=== PATIENT | female | born 1955 | race Caucasian/White ===

== ENCOUNTER 2024-06-09 12:02 | Outpatient (CLI) | payer MEDICARE, BC ==
[2024-06-09] MEDS ORDERED: iohexol 300mg/ml 100ml inj. ONE (13:10)
== END 2024-06-09 23:59 | disposition home or self-care (01) ==
LOC: RAD 12:02
PROVIDERS: ATTEND Nurse Practitioner Family
DX: J90 Pleural effusion, not elsewhere classified (principal); J81.1 Chronic pulmonary edema; D05.12 Intraductal carcinoma in situ of left breast; D05.11 Intraductal carcinoma in situ of right breast
CPT/HCPCS: 71260; Q9967

== ENCOUNTER 2024-06-09 12:15 | Outpatient (CLI) | payer MEDICARE, BC | END 2024-06-09 23:59 | disposition home or self-care (01) | LOC: RAD 12:15 | PROVIDERS: ATTEND Registered Nurse | DX: J90 Pleural effusion, not elsewhere classified (principal); C77.3 Secondary and unspecified malignant neoplasm of axilla and upper limb lymph nodes; I51.7 Cardiomegaly | CPT/HCPCS: 71046 ==

== ENCOUNTER 2024-06-09 13:39 | Emergency (ER) | payer MEDICARE, BC ==
[~2024-06-09] VITALS: Ht 172.7 cm; Wt 91.7 kg
[2024-06-09 14:35] LABS: BASOPHILS % (AUTO) 0.7 % (0-1); EOSINOPHILS # (AUTO) 0.2 X10'3 (0-0.9); EOSINOPHILS % (AUTO) 2.3 % (0-6); HEMATOCRIT 38.5 % (35.0-45.0); LYMPHOCYTES # (AUTO) 0.6 X10'3 (1.1-4.8); LYMPHOCYTES % (AUTO) 8.4 % (21-51); MEAN CORPUSCULAR HEMOGLOBIN 28.9 PG (27.0-31.0); MEAN CORPUSCULAR HGB CONC 33.7 g/dL (33.0-36.5); MEAN CORPUSCULAR VOLUME 85.9 FL (78-98); MEAN PLATELET VOLUME 8.2 FL (7.4-10.4); MONOCYTES # (AUTO) 0.5 X10'3 (0-0.9); MONOCYTES % (AUTO) 6.8 % (2-12); NEUTROPHILS # (AUTO) 5.7 X10'3 (1.8-7.7); NEUTROPHILS % (AUTO) 81.8 % (42-75); PLATELET COUNT 245 X10'3 (140-440); RED BLOOD COUNT 4.49 X10'6 (4.20-5.60); RED CELL DISTRIBUTION WIDTH 13.2 % (11.5-14.5)
[2024-06-09 14:44] LABS: ALANINE AMINOTRANSFERASE 31 U/L (12-78); ALBUMIN 3.3 G/DL (3.4-5.0); ALBUMIN/GLOBULIN RATIO 1.1 (1.1-1.5); ALKALINE PHOSPHATASE 108 IU/L (46-116); ANION GAP 5 (8-16); ASPARTATE AMINO TRANSFERASE 19 U/L (10-37); BILIRUBIN,TOTAL 0.6 MG/DL (0.1-1.0); BLOOD UREA NITROGEN 11 MG/DL (7-18); BUN/CREATININE RATIO 18.6 (10.0-20.0); CALCIUM 8.8 MG/DL (8.5-10.1); CHLORIDE 107 MMOL/L (99-107); CREATININE 0.59 MG/DL (0.40-0.90); GLUCOSE 89 MG/DL (70-104); POTASSIUM 3.6 MMOL/L (3.5-5.1); SODIUM 140 MMOL/L (135-145); TOTAL CARBON DIOXIDE 28.3 MMOL/L (24-32); TOTAL PROTEIN 6.4 G/DL (6.4-8.2); eCRCL 91 ML/MIN; eGFR > 90 ML/MIN
[2024-06-09 16:00] LABS: PLEURAL FLUID PH 7.504 (7.63-7.65)
[2024-06-09 16:01] LABS: BFSOURCE LEFT PLEURAL FLD
[2024-06-09] MEDS: oxyCODONE/APAP 5-325mg tablet PO ONE (16:17)
[2024-06-09 16:33] VITALS: BP 160/87; PULSE 60; RESP 24; O2SAT 97
[2024-06-09 16:48] LABS: BFAPPEAR CLEAR; BFSOURCE LEFT PLEURAL FLD
[2024-06-09 16:49] LABS: BFCOLOR YELLOW; BFVOLUME 1720 ML
[2024-06-09 17:08] VITALS: TEMP 98
[2024-06-09 17:14] LABS: LDH,BODY FLUID 135 U/L
[2024-06-09 17:44] LABS: BASOPHILS,BODY FLUID 0 %; BF RBC COUNT 725 /CU MM; BF WBC COUNT 95 /CU MM (0-1000); EOSINOPHILS,BODY FLUID 11 %; LYMPHOCYTES,BODY FLUID 37 %; MONOCYTES,BODY FLUID 24 %; NEUTROPHILS,BODY FLUID 28 %
[2024-06-09 17:46] LABS: BF MESOTHELIAL CELLS OCCASIONAL
== END 2024-06-09 17:09 | disposition home or self-care (01) ==
LOC: ER 13:40
DX: J90 Pleural effusion, not elsewhere classified (principal); Z85.3 Personal history of malignant neoplasm of breast; Z98.890 Other specified postprocedural states
CPT/HCPCS: 32555; 36415; 71045; 80053; 82945; 83615; 83986; 84145; 84157; 84484; 85025; 89051; 93005; 99285; Z7610

== ENCOUNTER 2024-07-26 09:42 | Emergency (ER) | payer MEDICARE, BC ==
[~2024-07-26] VITALS: Ht 172.7 cm; Wt 88.7 kg
[2024-07-26 09:45] VITALS: TEMP 98.7
--- NOTE | 2024-07-26 10:08 | ELECTROCARDIOGRAPH REPORT ---
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 Ney Herrera Measurements Intervals [place] Rate: 65 P: 41 [place]: 124 QRS: 31 QRSD: 96 T: 19 QT: 523 QTc: 544 Interpretive Statements Atrial-paced complexes Borderline T wave abnormalities Prolonged QT interval Baseline wander in lead(s) V1 Electronically Signed On 07-29-2024 13:44:[address] Ney Herrera Please click the below link to view image of tracing.
--- NOTE | 2024-07-26 10:19 | RADIOLOGY REPORT ---
EXAM: DI CHEST,TWO VIEWS CLINICAL HISTORY: SOB WITH HX OF THORACENTESIS IN MAY. COMPARISON: DI CHEST,TWO VIEWS on DOS: 06/09/24 TECHNIQUE: Frontal and lateral view of the chest was obtained FINDINGS: Lines and Tubes: None Lungs: Large left pleural effusion. Cardiomediastinal contours: Cardiomegaly Bones: No acute osseous abnormality. IMPRESSION: Large left pleural effusion with cardiomegaly.
[2024-07-26 10:21] LABS: BASOPHILS # (AUTO) 0.1 X10'3 (0-0.2); BASOPHILS % (AUTO) 0.9 % (0-1); EOSINOPHILS # (AUTO) 0.1 X10'3 (0-0.9); EOSINOPHILS % (AUTO) 1.7 % (0-6); HEMATOCRIT 40.7 % (35.0-45.0); HEMOGLOBIN 13.6 g/dl (12.0-16.0); LYMPHOCYTES # (AUTO) 0.6 X10'3 (1.1-4.8); LYMPHOCYTES % (AUTO) 10.8 % (21-51); MEAN CORPUSCULAR HEMOGLOBIN 28.3 PG (27.0-31.0); MEAN CORPUSCULAR HGB CONC 33.5 g/dL (33.0-36.5); MEAN CORPUSCULAR VOLUME 84.6 FL (78-98); MEAN PLATELET VOLUME 8.4 FL (7.4-10.4); MONOCYTES # (AUTO) 0.4 X10'3 (0-0.9); NEUTROPHILS # (AUTO) 4.7 X10'3 (1.8-7.7); NEUTROPHILS % (AUTO) 79.6 % (42-75); PLATELET COUNT 276 X10'3 (140-440); RED BLOOD COUNT 4.81 X10'6 (4.20-5.60); RED CELL DISTRIBUTION WIDTH 13.9 % (11.5-14.5); WHITE BLOOD COUNT 5.9 X10'3 (4.5-11.0)
[2024-07-26 10:32] LABS: ALANINE AMINOTRANSFERASE 19 U/L (12-78); ALBUMIN 3.7 G/DL (3.4-5.0); ALKALINE PHOSPHATASE 121 IU/L (46-116); ANION GAP 7 (8-16); ASPARTATE AMINO TRANSFERASE 14 U/L (10-37); BILIRUBIN,TOTAL 0.6 MG/DL (0.1-1.0); BLOOD UREA NITROGEN 16 MG/DL (7-18); BUN/CREATININE RATIO 22.5 (10.0-20.0); CALCIUM 9.4 MG/DL (8.5-10.1); CHLORIDE 104 MMOL/L (99-107); CREATININE 0.71 MG/DL (0.40-0.90); GLUCOSE 103 MG/DL (70-104); POTASSIUM 3.8 MMOL/L (3.5-5.1); SODIUM 140 MMOL/L (135-145); TOTAL CARBON DIOXIDE 29.5 MMOL/L (24-32); TOTAL PROTEIN 7.4 G/DL (6.4-8.2); eCRCL 75 ML/MIN; eGFR 82 ML/MIN
[2024-07-26 10:40] LABS: PRO BRAIN NATRIURETIC PEPTIDE 67 PG/ML (0-125)
[2024-07-26] MEDS ORDERED: GABA300C (11:47)
[2024-07-26] MEDS ORDERED: HYDR-3964 PO (11:47)
[2024-07-26] MEDS ORDERED: TIRZ5PEN (11:47)
[2024-07-26] MEDS ORDERED: TRAZ-251 PO (11:47)
[2024-07-26] MEDS: HYDROcodone/acetaminophen 10/325mg tab PO STA (12:12)
--- NOTE | 2024-07-26 13:15 | Physician Documentation ---
History of Present Illness ~ Chief Complaint: Shortness of Breath Stated Complaint: BACK PAIN/FLUID ON LUNGS Time Seen by MD: 11:30 Primary Medical Doctor: Lela Lay [facility] Patient is seen today with complaints of shortness of breath with history of p leural effusion in the left side and history of breast cancer. Patient states she is working closely with Dr. Patrick. Patient states she did have thoracentesis about a week ago and had over a L drained from her left chest cavity but states she now has pain from that procedure and states it did not seem to help her shortness of breath at all. Patient denies any chest pain or fevers or chills or body aches or abdominal pain or nausea, vomiting, diarrhea. Patient has no other concern or complaint at this time. Patient states her main complaint is pain and would like a renewal of her pain script. Medication Reconciliation Allergies: Coded Allergies: No Known Allergies (Unverified , 06/09/24) Scheduled Trazodone HCl (Trazodone HCl), 1 TAB PO HS, (Reported) Scheduled PRN Hydrocodone Bit/Acetaminophen (Hydrocodon-Acetaminophen 5-325), 1 TAB PO Q6H PRN for pain, (Reported) Miscellaneous Medications Gabapentin (Neurontin), (Reported) Tirzepatide (Mounjaro), (Reported) Past Medical History Past Medical History: Breast Cancer Past Surgical History: no surgical history Drug Use: none Lives In: Home Review of Systems Constitutional: Denies: chills, fever, weakness Eyes: Denies: pain, blurred vision ENT: Denies: ear pain, nose pain, throat pain, mouth pain Respiratory: Denies: cough, shortness of breath Cardiovascular: Denies: chest pain, palpitations Gastrointestinal: Denies: abdominal pain, nausea, vomiting Genitourinary: Denies: burning, dysuria Female Genitalia: Denies: vaginal discharge, pelvic pain Neurological: Denies: headache, dizziness Musculoskeletal: Denies: pain, swelling Integumentary: Denies: rash, lesions Allergic/Immunologic: Denies: hives, itching Hematologic/Lymphatic: Denies: no symptoms reported Psychiatric: Denies: depression, anxiety Physical Exam Vital Signs: Temperature: 98.7, Source: Temporal, Heart Rate: 62, Respiratory Rate: 16, BP: 137/80, Pulse Oximetry: 98, Weight: 88.650 Oxygen Flow Rate: 0 Physical Exam General: Awake and Alert, no acute distress. HEENT: Conjunctiva pink, Sclera clear, Mucus Membranes moist. Neck: Supple without masses and tenderness. Resp: Patient on exam does not have any labored breathing and does not appear to be any in any respiratory distress. Patient does have diminished breath sounds of the left lower side. Patient otherwise has clear best breath sounds throughout. Heart: Regular Rate and rhythm, normal S1 and S2 without murmur, rub or gallop. Abdomen: Soft and non tender no organomegaly Extremities: No cyanosis,clubbing or edema. Skin: Warm and Dry. Progress Results/Orders Results/Orders Completed Orders - FENG CADET Hydrocodone/Apap 10/325 (Hailey 10/325mg (07/26/24 11:50) Medications Received in ER Medications (Trade) Dose Ordered Sig/Irineo Route PRN Reason Start Time Stop Time Status Last Admin Dose Admin (Hailey 10/325mg tab) 1 tab ONCE STAT PO 07/26/24 11:50 07/26/24 11:51 DC 07/26/24 12:12 1 TAB Vital Signs 07/26/24 07/26/24 07/26/24 07/26/24 09:45 11:47 11:47 12:12 Temp 98.7 Pulse 74 62 Resp 18 16 16 16 B/P (MAP) 139/74 137/80 (99) Pulse Ox 95 98 O2 Flow Rate 0 0 Laboratory Tests Test 07/26/24 10:09 White Blood Count 5.9 Red Blood Count 4.81 Hemoglobin 13.6 Hematocrit 40.7 Mean Corpuscular Volume 84.6 Mean Corpuscular Hemoglobin 28.3 Mean Corpuscular Hemoglobin Concent 33.5 Red Cell Distribution Width 13.9 Platelet Count 276 Mean Platelet Volume 8.4 Neutrophils (%) (Auto) 79.6 H Lymphocytes (%) (Auto) 10.8 L Monocytes (%) (Auto) 7.0 Eosinophils (%) (Auto) 1.7 Basophils (%) (Auto) 0.9 Neutrophils # (Auto) 4.7 Lymphocytes # (Auto) 0.6 L Monocytes # (Auto) 0.4 Eosinophils # (Auto) 0.1 Basophils # (Auto) 0.1 CBC Comment Sodium Level 140 Potassium Level 3.8 Chloride Level 104 Carbon Dioxide Level 29.5 Anion Gap 7 L Blood Urea Nitrogen 16 Creatinine 0.71 Estimated GFR/1.73 m2 82 BUN/Creatinine Ratio 22.5 H Glucose Level 103 Calcium Level 9.4 Total Bilirubin 0.6 Aspartate Amino Transf (AST/SGOT) 14 Alanine Aminotransferase (ALT/SGPT) 19 Alkaline Phosphatase 121 H Pro-B-Type Natriuretic Peptide 67 Total Protein 7.4 Albumin 3.7 Globulin 3.7 Albumin/Globulin Ratio 1.0 L Chemistry Comments EKG/XRAY/CT/US/VASC/MRI EKG : Additional Comment EKG interpreted by myself today shows regular rate at 65 beats per minute, atrial paced complexes, no sign of ischemia and no ST segment elevation. Chest X-Ray : Additional Comments Chest x-ray interpreted by myself today shows large left pleural effusion, cardiomegaly, no large infiltrate. DIAGNOSTIC RADIOLOGY Patient: SUSAN BELLO Medical Record: [id number] [facility] : 1955, Age: 69 Sex: Female Location: ER Patient Status: [facility] ER Service Date/Time: 07/26/24947 Ordering Physician: LAURA CHAMBERS MD Exam: CHEST,TWO VIEWS EXAM: DI CHEST,TWO VIEWS CLINICAL HISTORY: SOB WITH HX OF THORACENTESIS IN MAY. COMPARISON: DI CHEST,TWO VIEWS on DOS: 06/09/24 TECHNIQUE: Frontal and lateral view of the chest was obtained FINDINGS: Lines and Tubes: None Lungs: Large left pleural effusion. Cardiomediastinal contours: Cardiomegaly Bones: No acute osseous abnormality. IMPRESSION: Large left pleural effusion with cardiomegaly. Electronically Signed by:LUIGI SCHUMACHER MD Date & Time: 07/26/24 1017 Dictated by: LUIGI SCHUMACHER MD Dictation date and time: 07/26/24 1005 Primary Care Provider: NO PRIMARY CARE PROVIDER cc: LAURA CHAMBERS MD ~ Medical Decision Making Findings Patient is seen today with complaints of shortness of breath with history of pleural effusion in the left side and history of breast cancer. Patient states she is working closely with Dr. Patrick. Patient states she did have thoracentesis about a week ago and had over a L drained from her left chest cavity but states she now has pain from that procedure and states it did not seem to help her shortness of breath at all. Patient denies any chest pain or fevers or chills or body aches or abdominal pain or nausea, vomiting, diarrhea. Patient has no other concern or complaint at this time. Patient states her main complaint is pain and would like a renewal of her pain script. Patient did have large left pleural effusion on exam today as well as visualized on chest x-ray. Patient did have labs drawn that are largely unremarkable without any sign of leukocytosis and only mild elevation of alkaline phosphatase. Patient will continue close follow up with Oncology and will make appointment outpatient with IR for possible chest tube and will coordinate this with her primary care/oncologist. Patient will return to ED with any worsening, concerning or changing symptoms. Patient was given Hailey 10/325 mg tablet in the ED today as well as a prescription sent to patient's pharmacy for Hailey 10/325 mg to be taken as directed. Departure Disposition: HOME / SELF CARE / HOMELESS Impression: Primary Impression: Pleural effusion Condition: Improved Discharge Instructions: Pleural Effusion Additional Instructions: Patient did have large left pleural effusion on exam today as well as visualized on chest x-ray. Patient did have labs drawn that are largely unremarkable without any sign of leukocytosis and only mild elevation of alkaline phosphatase. Patient will continue close follow up with Oncology and will make appointment outpatient with IR for possible chest tube and will coordinate this with her primary care/oncologist. Patient will return to ED with any worsening, concerning or changing symptoms. Patient was given Hailey 10/325 mg tablet in the ED today as well as a prescription sent to patient's pharmacy for Hailey 10/325 mg to be taken as directed. Referrals: NO PRIMARY CARE PROVIDER (PCP) Prescriptions Hydrocodone Bit/Acetaminophen (Hydrocodon-Acetaminophn 10-325 tablet) 10mg- 325mg Tablet 1 TAB PO QID PRN PRN for pain for 7 Days, #28 TAB Prov: FENG CADET PAC 07/26/24 Signature Scribe Signature: no Scribe Attestation: No scribe FENG CADET PAC July 26, 2024 13:15
[2024-07-26] MEDS ORDERED: HYDR-3973 PO (13:17)
[2024-07-26] MEDS ORDERED: HYDR-3972 PO (13:42)
[2024-07-26 13:54] VITALS: BP 119/68; PULSE 60; RESP 16; O2SAT 98
== END 2024-07-26 13:55 | disposition home or self-care (01) ==
LOC: ER 09:43
DX: J90 Pleural effusion, not elsewhere classified (principal); Z85.3 Personal history of malignant neoplasm of breast
CPT/HCPCS: 36415; 71046; 80053; 83880; 85025; 93005; 99285

== ENCOUNTER 2024-12-21 10:40 | Inpatient (IN) | payer MEDICARE, BC ==
[2024-12-21] VITALS (13 sets, daily range): BP systolic 97–130; BP diastolic 53–82; PULSE 65–77; RESP 15–34; TEMP 97–99.2; O2SAT 92–98
[~2024-12-21] VITALS: Ht 172.7 cm; Wt 81.8 kg
[~2024-12-21 10:40] MED LIST: GABA300C PO; HYDR-3964 PO; TIRZ5PEN; TRAZ-251 PO
[2024-12-21] MEDS ORDERED: PALB125C PO (11:07)
[2024-12-21] MEDS ORDERED: ANAS1TAB10 PO (11:07)
[2024-12-21 11:42] LABS: MEAN PLATELET VOLUME 6.8 FL (7.4-10.4); RED CELL DISTRIBUTION WIDTH 18.3 % (11.5-14.5)
[2024-12-21 12:00] LABS: CREATININE 0.64 MG/DL (0.40-0.90); INR 1.1 INR; TOTAL CARBON DIOXIDE 33.4 MMOL/L (24-32); eCRCL 84 ML/MIN; eGFR > 90 ML/MIN
[2024-12-21 12:45] LABS: EOSINOPHILS % (MANUAL) 3.0 % (0-6); LYMPHOCYTES % (MANUAL) 11.0 % (21-51); MONOCYTES % (MANUAL) 5.0 % (2-12); NEUTROPHILS % (MANUAL) 81.0 % (42-75); PLATELET ESTIMATE NORMAL
[2024-12-21 12:46] LABS: ELLIPTOCYTES FEW
[2024-12-21] MEDS ORDERED: fentaNYL/PF 50MCG/1 ML 2ML syringe ONE (14:51)
[2024-12-21] MEDS ORDERED: midazolam 1 mg/ML 2ml injection ONE (14:51)
--- NOTE | 2024-12-21 15:35 | PROGRESS NOTE ---
Progress Note - Angio Providers to CC ~ Angio Progress Note: Risks benefits alt of left chest tube by CT guidance placement d/w pt and informed consent disclosed. Surgical time out, successful placement of 12 Fr pigtail L chest tube for future talc pleurodesis by Dr Medina. D/W our Hospitalist team who will kindly be admitting tonight. Pleurivac suction, to be clamped for 2 hrs after the first 1000cc dark bloody fluid is removed. EBL less than 3 cc, Complications None, Dictated. ANNA LAMB MD Dec 21, 2024 15:35
--- NOTE | 2024-12-21 15:40 | CONSULTATION REPORT ---
History of Present Illness Providers to CC ~ Refering MD: [facility] Allergies: Coded Allergies: No Known Allergies (Unverified , 06/09/24) Home Medications Home Medications Active Reported Arimidex* (Anastrozole) 1 Mg Tablet 1 Tab PO DAILY 30 Days Ibrance (Palbociclib) 125 Mg Capsule 1 Cap PO DAILY Neurontin (Gabapentin) 300 Mg Capsule 300 Mg PO BID Hydrocodon-Acetaminophen 5-325 (Hydrocodone Bit/Acetaminophen) 5 Mg-325 Mg Tablet 1 Tab PO Q6H PRN Physical Exam Last Vital Signs Recorded: Temperature: 97.7, Source: Oral, Heart Rate: 72, Respiratory Rate: 15, BP: 126/65, Pulse Oximetry: 97, Weight: 81.800 Results Diagram Lab Result Diagram: 12/21/24 1125 12/21/24 1125 ANNA LAMB MD Dec 21, 2024 15:40
[2024-12-21] MEDS: HYDROcodone/acetaminophen 10/325mg tab PO PRN (15:49)
--- NOTE | 2024-12-21 16:02 | RADIOLOGY REPORT ---
CT-guided chest tube placement left-sided 12 Ghanaian Clinical history: Prior history of breast cancer. Large left pleural effusion with future pleurodesis planned DLP 797.62 Medication: 25 micrograms IV fentanyl. 8 mL 1% lidocaine subcutaneous ESTIMATED BLOOD LOSS: None Consent was obtained. Risks benefits alternatives were discussed. Patient brought to CT scanner and large left pleural effusion was localized. Overlying soft tissues are prepped in usual sterile fashion draped. Surgical timeout was performed. The soft tissues were anesthetized with 1% lidocaine. Using CT guidance a 5 Ghanaian [employer] catheter was placed in the pleural space. Wire placement was confirmed with imaging. It was exchanged over guidewire serial dilators up to 12 Ghanaian followed by placement of 12 Ghanaian pigtail catheter. Wire was removed. Catheter was placed to Pleur-evac suction and fixed to skin with suture and with adhesive device. She tolerated procedure well. FINDINGS: 12 Ghanaian pigtail chest tube within a large left pleural effusion. We will connected to Pleur-evac suction. After the first 1000 cc of dark bloody fluid removal we will clamp the Pleur-evac tube for 2 hours to allow normalization of left lung expansion. IMPRESSION: Successful left-sided 12 Ghanaian chest tube placement for large left pleural effusion and future pleurodesis.
--- NOTE | 2024-12-21 16:08 | HISTORY AND PHYSICAL ---
History & Physical Providers to Chief complaint, shortness of breath ~ History of Present Illness Reason for Admit\Complaint: As above History of Present Illness This is a 69 years old female with history of breast cancer, followed by oncologist, history of left side large pleural effusion, treated with thoracocentesis June 2024, history of chronic pain syndrome on home opioids, anemia, leukopenia, hypoalbuminemia, cardiomegaly, presented today to the hospital with chief complaint shortness of breath and large left pleural effusion, patient had procedure done by interventional radiologist, Dr. Tristan left side of the chest was placed chest tube, and decision was made to admit patient for further evaluation and treatment including further consultation by Cardiothoracic surgeon; in addition patient is seen today with complaints of shortness of breath with history of pleural effusion in the left side and history of breast cancer. Patient states she is working closely with Dr. Patrick. Patient states she did have thoracentesis and June 2024 and had over a L drained from her left chest cavity but states she now has pain from that procedure and states it did not seem to help her shortness of breath at all. Patient denies any chest pain or fevers or chills or body aches or abdominal pain or nausea, vomiting, diarrhea. Patient has no other concern or complaint at this time. Patient states her main complaint is pain secondary to pleural effusion and shortness of breath, otherwise no additional complaint or concern. She will be admitted to PCU, for further evaluation and treatment including by Dr. Medina. Allergies: Coded Allergies: No Known Allergies (Unverified , 06/09/24) Active prescriptions I reviewed reconciled Home Medications Home Medications Active Reported Arimidex* (Anastrozole) 1 Mg Tablet 1 Tab PO DAILY 30 Days Ibrance (Palbociclib) 125 Mg Capsule 1 Cap PO DAILY Neurontin (Gabapentin) 300 Mg Capsule 300 Mg PO BID Hydrocodon-Acetaminophen 5-325 (Hydrocodone Bit/Acetaminophen) 5 Mg-325 Mg Tablet 1 Tab PO Q6H PRN Past Medical History Past Medical History As in HPI Past Surgical History Surgical History Comment As in HPI Past Social History Social History Comment Deny illicit drug abuse tobacco alcohol use live with the family good social support Health Maintenance Health Maintenance Noncontributory ROS ROS Constitutional : no fever , no chills, or weakness. No diaphoresis. Allergic/Immunologic, no lymphadenopathy, no hives, no skin eruptions. Eyes, no recent visual changes, no eye pain, no photophobia. Ears, nose, mouth, throat, no sore throat, no nosebleed, no ear pain. Cardiovascular, no palpitations, skipped beats, chest pain, no peripheral edema, Respiratory, positive for left side pleural effusion associated with dyspnea, orthopnea, no cough, hemoptysis, positive for left side chest wall pain. Gastrointestinal, no abdominal pain, nausea, vomiting, constipation or diarrhea. : no dysuria, hematuria, pelvic pain, urethral d/c. Endocrine, no polyuria, polydipsia, recent unintentional weight gain or loss. Hematologic/Lymphatic, no petechiae, no enlarged lymph nodes, no bone pain. Integumentary, no rash, no skin lesions, Musculoskeletal, no muscle aches, or pain, no muscle cramps, no recent change in gait Neurological, no dizziness, no headache, no syncope, no paresthesia. Psychiatric, no delusions, visual hallucinations, or hearing hallucinations. ROS - in rest is as in HPI. Exam Vitals: Vital Signs Date Time Temp Pulse Resp B/P (MAP) Pulse Ox O2 Delivery O2 Flow Rate FiO2 12/21/24 15:49 15 12/21/24 15:13 72 126/65 (85) 97 Nasal Cannula 2.0 12/21/24 11:34 97.7 Vital signs, stable ,afebrile. Pulse Oximetry reflects adequate oxygenation on 2 L oxygen nasal cannula. BMI is 27, weight 81 kg General: well developed, well nourished. Awake , alert, and oriented x4, resting comfortably in the bed, in no acute distress . Skin: Warm, dry, no pallor, no rash or petechiae. HEENT: Atraumatic, normocephalic, EOMI, anicteric sclera B; pink conjunctiva; PERRLA, normal oropharynx, moist oral and nasal mucosa. Tympanic membrane , nose , throat clear. Neck: Trachea midline. Supple, full range of motion, no JVD, bruit , hepatojugular reflex , lymphadenopathy or masses, or other lesions Cardiac: Regular rhythm, regular rate no murmurs, rubs, or gallops. Normal S1 and S2, no S3 noticed. PMI is normal. Respiratory: Equal breath sounds bilaterally, no tachypnea; lungs clear to auscultation bilaterally, no wheezing ,rub or rales, or crackles. Chest wall is symmetric and without deformity. No signs of trauma. Chest wall is nontender. No signs of respiratory distress. Resonance is normal upon percussion bilaterally. Chest tube in place functional Gastrointestinal: Abdomen symmetric, non-distended, soft, non-tender, normal bowel sounds x4 quadrant, normoactive, no hepatosplenomegaly , no masses , no bruit, no flank pain bilaterally. No voluntary guarding, rebound, or rigidity. No tenderness to percussion. No pulsatile masses. Equal femoral pulses. No Willis's sign or McBurney point tenderness. Back; no CVA tenderness bilaterally, no deformities. Neck and back are without deformity as well. No tenderness noted on palpation of the spinous processes. Spinous processes are midline. Cervical, thoracic, and lumbar paraspinal muscles are not tender and are without spasm. : Not indicated Musculoskeletal: Extremities, normal range of motion, non-tender, muscle strength 5/5 x 4. Negative Homans signs bilaterally on lower extremity. Distal pulses full symmetrical, no clubbing, cyanosis , edema. Neurological: Speech is clear, alert, and oriented x 4. No motor or sensory deficit, deep tendon reflexes normal, cerebellar intact. Cranial nerves II-XII intact. Psych: Alert and or appropriate, normal affect. Vascular: Good distal pulses, which are equal x4; capillary refill less than 2 seconds. Lymphatic, no lymphadenopathy. Diagnostic Data Last Recorded Lab Results: 12/21/24 1125 12/21/24 1125 Diagnostic Data: Laboratory Tests Test 12/21/24 11:25 Prothrombin Time 11.1 SECONDS (9.0-12.0) INR International Normalized Ratio 1.1 INR Coagulation Comments Advance Care Planning Advanced Care plannin - 30 Minutes Additional Plan Assessment History of breast cancer, followed up by oncologist Large left pleural effusion Status post left side chest tube placement by interventional radiologist Acute respiratory failure secondary to hypoxia History of thoracocentesis June 2024 on the left side of the chest Chronic pain syndrome on home opioids Leukopenia Hypoalbuminemia Cardiomegaly Plan IV fluids keep patient well hydrated euvolemic Pain control, p.o. IV analgesics Cardiothoracic surgeon is on the case for possible pleurodesis procedure Additional lab work pending Reconciled home medications DVT gastropathy prophylaxis addressed Sepsis Screening Reassessment Date: Dec 21, 2024 Date of Service: Dec 21, 2024 Billing Provider: ADEEL TUTTLE MD Common Visit Codes: [id number] INP/OBS CARE (HIGH) ADEEL TUTTLE MD Dec 21, 2024 16:08
[2024-12-21] MEDS ORDERED: potassium Cl 40MEQ/1/2NS 520ml 520 ML IV PRN (16:35)
[2024-12-21] MEDS ORDERED: magnesium hydroxide 30ml (MOM) UD suspension PO PRN (16:35)
[2024-12-21] MEDS ORDERED: mag hydrox/Alum hydrox/simeth 30ml oral suspension PO PRN (16:35)
[2024-12-21] MEDS ORDERED: magnesium Cl slow-release 64mg tablet PO PRN (16:35)
[2024-12-21] MEDS ORDERED: ondansetron/PF 4mg/2ml inj IV PRN (16:35)
[2024-12-21] MEDS ORDERED: magnesium sulf-water 2g/50mL 50 ML IV PRN (16:35)
[2024-12-21] MEDS ORDERED: magnesium sulf-water 4G/100mL 100 ML IV PRN (16:35)
[2024-12-21] MEDS ORDERED: potassium Cl 20 mEq SR tablet PO PRN ×2 (16:35)
[2024-12-21 17:15] LABS: BFAPPEAR BLOODY; BFSOURCE LEFT PLEURAL FLD
[2024-12-21 17:16] LABS: BF WBC COUNT 44 /CU MM (0-1000); BFCOLOR RED; BFVOLUME 55 ML
[2024-12-21 17:17] LABS: BF RBC COUNT 116200 /CU MM; LYMPHOCYTES,BODY FLUID 24 %; MONOCYTES,BODY FLUID 20 %; NEUTROPHILS,BODY FLUID 56 %
[2024-12-21] MEDS: morphine 4 MG/ML inj SYRINge IV PRN (18:08)
[2024-12-21] MEDS: normal saline 1000ml 1,000 ML IV SCH (18:20)
[2024-12-21] MEDS: docusate sod 100mg capsule PO SCH (20:00)
[2024-12-21] MEDS: K and/or MAG REPLACEMENT MC SCH (20:00)
[2024-12-21] MEDS: PALBOCICLIB 125 MG PO SCH (20:08)
[2024-12-21] MEDS ORDERED: dextrose 50%-water 50ml dispensing syringe IV PRN ×2 (21:25)
[2024-12-21] MEDS ORDERED: glucagon, human recombinant 1mg kit SUBCUT PRN (21:25)
[2024-12-21] MEDS ORDERED: DEXTROSE 15 GM of carb/4 tabs (each vial/BOTTLE has 4 tablets) PO PRN ×2 (21:25)
[2024-12-21] MEDS: INSULIN LISPRO 100 UNIT/ML INSULN.PEN MULTI-DOSE SQ SCH (21:28)
[2024-12-22] VITALS (9 sets, daily range): BP systolic 107–135; BP diastolic 51–78; PULSE 66–81; RESP 17–23; TEMP 96.9–97.8; O2SAT 94–98
[2024-12-22 07:32] LABS: MEAN PLATELET VOLUME 7.2 FL (7.4-10.4); RED CELL DISTRIBUTION WIDTH 17.2 % (11.5-14.5)
[2024-12-22 07:56] LABS: CREATININE 0.62 MG/DL (0.40-0.90); TOTAL CARBON DIOXIDE 31.1 MMOL/L (24-32); eCRCL 86 ML/MIN; eGFR > 90 ML/MIN
--- NOTE | 2024-12-22 14:49 | RADIOLOGY REPORT ---
EXAM: CT CT CHEST INDICATION: CHEST TUBE POSS PLEURADESIS TECHNIQUE: Noncontrast axial images of the chest have been obtained along with coronal and sagittal reformatted images. All CT scans at this facility use dose modulation, iterative reconstruction, and/or weight based dosing when appropriate to reduce radiation dose to as low as reasonably achievable. COMPARISON: XR CHEST 1 VIEW AP OR PA on DOS: 08/24/24 FINDINGS: LOWER NECK: Unremarkable LYMPH NODES/MEDIASTINUM: No abnormal lymph nodes by CT size criteria CARDIOVASCULAR: Normal cardiac size. Small pericardial effusion with the associated left lateral pleural-based adjacent nodularity. No aneurysmal dilatation of the great vessels. Coronary artery calcifications. UPPER ABDOMEN: Unremarkable. MUSCULOSKELETAL: No acute fracture or aggressive focal osseous lesion. Multilevel degenerative change of the visualized spine. Sclerosis of the left lateral 7th rib. CHEST WALL: Left breast mastectomy. Left axillary lymph node dissection. Right breast implant. LUNG PARENCHYMA/PLEURAL SPACE: Significant loculated air-fluid collection along the left pleural space with the associated left pigtail drainage catheter. Visceral and parietal thickening compatible most likely with empyema. Essentially near-complete collapse of the left lung, overall similar configur ation to prior examination dated 06/09/24 increased pleural-based nodularity which may be compatible with the given history of talc pleurodesis. IMPRESSION: 1. Large air-fluid level persistent in the loculated left-sided pleural effusion with visceral and parietal left-sided thickening status post left pleural drainage catheter placement. 2. Increased pleural-based nodularity and thickening when compared to prior examination along the entirety of the left hemithorax which may be sequelae of given history of pleurodesis however malignancy demonstrates a similar imaging appearance.
--- NOTE | 2024-12-22 18:41 | PROGRESS NOTE ---
Daily Progress Note Providers to CC Feels better today, chest tube functioning in place well-seated, ~ Central Line/PICC still needed: No Sylvester-Non Protocol Sylvester Indications Met/Not Met: F/C Indications Not Met Antibiotic Timeout Antibiotic Ordered?: No MRSA Education MRSA Education Provided to pt: No Subjective As above Objective Vital Signs Date Time Temp Pulse Resp B/P (MAP) Pulse Ox O2 Delivery O2 Flow Rate FiO2 12/22/24 15:47 18 12/22/24 15:00 96.9 70 120/51 (74) 98 Room Air 12/21/24 15:13 2.0 Vital signs, stable ,afebrile. Pulse Oximetry reflects adequate oxygenation. L oxygen nasal cannula General: well developed, well nourished. Awake , alert, and oriented x4, resting comfortably in the bed, in no acute distress . Skin: Warm, dry, no pallor, no rash or petechiae. HEENT: Atraumatic, normocephalic, EOMI, anicteric sclera B; pink conjunctiva; PERRLA, normal oropharynx, moist oral and nasal mucosa. Tympanic membrane , nose , throat clear. Neck: Trachea midline. Supple, full range of motion, no JVD, bruit , hepatojugular reflex , lymphadenopathy or masses, or other lesions Cardiac: Regular rhythm, regular rate no murmurs, rubs, or gallops. Normal S1 and S2, no S3 noticed. PMI is normal. Respiratory: Equal breath sounds bilaterally, no tachypnea; lungs clear to auscultation bilaterally, no wheezing ,rub or rales, or crackles. Chest wall is symmetric and without deformity. No signs of trauma. Chest wall is nontender. No signs of respiratory distress. Resonance is normal upon percussion bilaterally. Left-sided chest tube in place functional well-seated Gastrointestinal: Abdomen symmetric, non-distended, soft, non-tender, normal bowel sounds x4 quadrant, normoactive, no hepatosplenomegaly , no masses , no bruit, no flank pain bilaterally. No voluntary guarding, rebound, or rigidity. No tenderness to percussion. No pulsatile masses. Equal femoral pulses. No Willis's sign or McBurney point tenderness. Back; no CVA tenderness bilaterally, no deformities. Neck and back are without deformity as well. No tenderness noted on palpation of the spinous processes. Spinous processes are midline. Cervical, thoracic, and lumbar paraspinal muscles are not tender and are without spasm. : normal external genitalia, without lesions, swelling, masses or tenderness. Musculoskeletal: Extremities, normal range of motion, non-tender, muscle strength 5/5 x 4. Negative Homans signs bilaterally on lower extremity. Distal pulses full symmetrical, no clubbing, cyanosis , edema. Neurological: Speech is clear, alert, and oriented x 4. No motor or sensory deficit, deep tendon reflexes normal, cerebellar intact. Cranial nerves II-XII intact. Psych: Alert and or appropriate, normal affect. Vascular: Good distal pulses, which are equal x4; capillary refill less than 2 seconds. Lymphatic, no lymphadenopathy. Result Diagram: 12/22/24 0708 12/22/24 0708 Coagulation Studies Laboratory Tests Test 12/21/24 11:25 Prothrombin Time 11.1 SECONDS (9.0-12.0) INR International Normalized Ratio 1.1 INR Coagulation Comments Problem\Assessment\Plan Assessment History of breast cancer, followed up by oncologist Large left pleural effusion Status post left side chest tube placement by interventional radiologist Acute respiratory failure secondary to hypoxia History of thoracocentesis June 2024 on the left side of the chest Chronic pain syndrome on home opioids Leukopenia Hypoalbuminemia Cardiomegaly Plan IV fluids keep patient well hydrated euvolemic Pain control, p.o. IV analgesics Cardiothoracic surgeon is on the case for possible pleurodesis procedure Additional lab work pending Reconciled home medications DVT gastropathy prophylaxis addressed Sepsis Screening Reassessment Date: Dec 22, 2024 Date of Service: Dec 22, 2024 Billing Provider: ADEEL TUTTLE MD Common Visit Codes: [id number] INP/OBS CARE(HIGH) ADEEL TUTTLE MD Dec 22, 2024 18:41
--- NOTE | 2024-12-22 20:50 | PROGRESS NOTE ---
Progress Note ID Providers to CC ~ Progress Note Progress Note: ct findings consistent with trapped lung -will attempt vats decortication in am with pleuryx catheter placement MEJIA MEDINA MD Dec 22, 2024 20:50
[2024-12-23] VITALS (14 sets, daily range): BP systolic 95–146; BP diastolic 52–76; PULSE 73–96; RESP 12–19; TEMP 97; O2SAT 96–100
[2024-12-23] MEDS ORDERED: rocuronium 10mg/ml inj IV ONE ×3 (10:16→14:04)
[2024-12-23] MEDS ORDERED: propofol inj 20 ML IV ONE (10:16)
[2024-12-23] MEDS ORDERED: BUPIVACAINE liposomal/PF 13.3 MG/ML 10mL vial IM ONE (10:17)
[2024-12-23] MEDS ORDERED: INDOCYANINE GREEN 25 MG/10 ML VIAL IV ONE (10:17)
[2024-12-23] MEDS ORDERED: BUPIVAcaine 2.5mg/ml inj 50ml vial (contains preservative) ONE (10:17)
[2024-12-23] MEDS ORDERED: fentaNYL/PF 50MCG/1 ML 2ML syringe ONE ×2 (10:29→13:31)
[2024-12-23] MEDS ORDERED: midazolam 1 mg/ML 2ml injection ONE (10:29)
[2024-12-23] MEDS: ringers solution, lacted 1,000 ML IV SCH (11:35)
[2024-12-23] MEDS ORDERED: ondansetron/PF 4mg/2ml inj IV PRN ×2 (11:35→14:15)
[2024-12-23] MEDS ORDERED: MIDAZolam 1 MG/ML 5ML VIAL ONE (13:31)
[2024-12-23] MEDS: TALC 4 GM VIAL ***intrapleural administration only IX ONE (14:00)
[2024-12-23] MEDS ORDERED: albumin (Human) 5% 250ml 250 ML IV ONE (14:02)
--- NOTE | 2024-12-23 14:11 | OPERATIVE REPORT ---
Operative Report Providers to CC ~ Date of Procedure: Dec 23, 2024 Pre-Operative Diagnosis: mailgnant left pleural effusion with trapped lung Post-Operative Diagnosis SAME as PRE-Op Procedure Performed vats exploration/left thoracotomy/decortication/chest tube placement/pleuryx catheter placement Surgeon: sara Appraiser Land none Type of Anesthesia: General Findings: extensive pleural peel Estimated Blood Loss: 250 ml Specimen Removed: pleura MEJIA MEDINA MD Dec 23, 2024 14:11
[2024-12-23] MEDS ORDERED: morphine 4 MG/ML inj SYRINge IV PRN (14:15)
[2024-12-23] MEDS ORDERED: metoclopramide 5 mg/ml inj IV PRN (14:15)
[2024-12-23] MEDS ORDERED: FENTANYL-0.9 % NACL/PF 100 ML IV SCH (14:15)
[2024-12-23] MEDS ORDERED: albuterol 2.5 MG/3 ML nebule NEB PRN (14:15)
[2024-12-23] MEDS ORDERED: HYDROcodone/acetaminophen 10/325mg tab PO PRN ×2 (14:15)
[2024-12-23] MEDS: midazolam 1 mg/ML 2ml injection IV ONE (14:35)
[2024-12-23] MEDS ORDERED: fentaNYL/PF 50MCG/1 ML 2ML syringe IV PRN (14:35)
--- NOTE | 2024-12-23 14:37 | OPERATIVE REPORT ---
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 PROCEDURES PERFORMED: * Fluoroscopic exploration of left pleural space. * Left thoracotomy. * Decortication of the lower lobe. * Partial parietal pleurectomy. * Pleural tent. * Chest tube placement. * Pleurx catheter placement. SURGEON: Nolan Medina MD NEONATAL INTENSIVE CARE NURSE: None. ANESTHESIA: General/____. DRAINS: Chest tube x2 placement and Pleux catheter placement. DESCRIPTION OF PROCEDURE: The patient was placed supine on the operating room table. After general anesthesia was induced, an endotracheal tube was placed. The patient was turned to the left side and prepped and draped. After a timeout was performed, an incision was made in the medial aspect of the left chest ____ intercostal space. The pleural space was entered under direct vision. A port was then placed through the incision, a camera was placed, and the pleural space was evaluated. Extensive pleural adhesions and peel were noted on the lower lobe as well as a portion of the upper lobe, keeping both lobes trapped. Given the patient's wishes of trying to obtain an adequate result, the decision was made to proceed with a left thoracotomy, which was subsequently performed. A portion of the rib was resected to create a space in which to work. Decortication of the lower lobe was then performed. The upper lobe was then mobilized off the chest wall by excising a portion of the parietal pleura. This allowed mobilization of the upper lobe off the chest wall. Decortication of the upper lobe was then performed. The lung expanded reasonably well, but did not clearly fill the pleural space, so the pleura off the apex of the left pleural cavity was mobilized to create an pleural tent as well as possible given the underlying malignancy. The pleural space was then irrigated with antibiotic-containing solution. 4 g of talc was instilled within the pleural space. Tisseel was used to help seal the air leaks created by unroofing the thickened visceral pleura. Wide dissection was performed to the left upper lobe to facilitate removal of additional tissue. A #30 chest tube was placed and posteriorly respectively. A Pleurx catheter was placed through a separate stab incision, tunneled, and then the distant pleural space. The cap was secured in place with 0 silk sutures. A #5 FiberWire was then used to reapproximate chest using a ____ punch. After the lung was adequately reinflated, the ribs were reapproximated and the sutures were secured. The chest wall was closed in layers. The skin was closed with clips. Dressings were applied. The chest tube was connected to a Pleur-evac. The patient was transferred to recovery in critical condition. Nolan Medina MD TID: [id number] RECEIPT: [id number] KB/UDD
[2024-12-23] MEDS: FENTANYL-0.9 % NACL/PF 100 ML IV SCH (14:50)
--- NOTE | 2024-12-23 14:55 | RADIOLOGY REPORT ---
Indication: POST OP Technique: DI CHEST,SINGLE [id number] Comparison: 12/22/2024 CT chest FINDINGS/IMPRESSION: The endotracheal tube tip projects 4.8 cm above the gee. Moderate to large left pneumothorax/trapped lung. Left chest tubes projecting of the left lung apex and left lung base. Left lateral chest wall soft tissue emphysema. Near-complete evacuation of the previously seen left pleural effusion . Cardiac silhouette midline. Diffuse bilateral patchy airspace opacities. Pulmonary vascular congestion. Small right pleural effusion.
[2024-12-23] MEDS: midazolam 100mg in NS 100ml 100 ML IV SCH (15:20)
[2024-12-23 15:53] LABS: ABG BASE EXCESS 1.2 mmol/L (-2.0-3.0); ABG HCO3 23.9 mmol/L (21.0-28.0); ABG OXYGEN SATURATION 99.1 % (94.0-98.0); ABG PCO2 (T) 30.9 mmHg (32.0-45.0); ABG PH (T) 7.504 (7.350-7.450); ABG PO2 (T) 131.3 mmHg (83.0-108.0); FCOHb 1.4 % (0.5-1.5); FHHb 0.9 % (0.0-5.0); FIO2 40.0 mmHg/%; FMetHb 0.3 % (0.0-1.5); FO2Hb 97.4 % (94.0-98.0); MODE VENT - SIMV; PATIENT TEMPERATURE 36.1; PEEP 10 cm H2O; RESPIRATORY RATE 12 b/min; TIDAL VOLUME 600 mL; TOTAL HEMOGLOBIN 12.5 G/dl (12.0-16.0)
[2024-12-23] MEDS ORDERED: ceFAZolin inj. 1,000 MG in dextrose 5%-water 50ml 50 ML IV SCH (16:00)
[2024-12-23] MEDS: ceFAZolin 1GM/D5W- ADD-VANTAGE 50 ML IV SCH (16:00)
[2024-12-23 16:07] LABS: MEAN PLATELET VOLUME 7.0 FL (7.4-10.4); RED CELL DISTRIBUTION WIDTH 17.1 % (11.5-14.5)
[2024-12-23 16:23] LABS: CREATININE 0.55 MG/DL (0.40-0.90); PHOSPHORUS 3.0 MG/DL (2.3-4.5); TOTAL CARBON DIOXIDE 25.5 MMOL/L (24-32); eCRCL 97 ML/MIN; eGFR > 90 ML/MIN
--- NOTE | 2024-12-23 17:35 | PROGRESS NOTE ---
Daily Progress Note Providers to CC Feels better today less shortness of breath pain well controlled awaiting to go to OR ~ Central Line/PICC still needed: No Sylvester-Non Protocol Sylvester Indications Met/Not Met: F/C Indications Not Met Antibiotic Timeout Antibiotic Ordered?: Yes MRSA Education MRSA Education Provided to pt: Yes Subjective As above Objective Vital Signs Date Time Temp Pulse Resp B/P (MAP) Pulse Ox O2 Delivery O2 Flow Rate FiO2 12/23/24 17:27 81 12 99 30 12/23/24 15:20 158/76 12/23/24 02:00 97.0 Room Air 12/21/24 15:13 2.0 Vital signs, stable ,afebrile. Pulse Oximetry reflects adequate oxygenation. On 2 L oxygen nasal cannula General: well developed, well nourished. Awake , alert, and oriented x4, resting comfortably in the bed, in no acute distress . Skin: Warm, dry, no pallor, no rash or petechiae. HEENT: Atraumatic, normocephalic, EOMI, anicteric sclera B; pink conjunctiva; PERRLA, normal oropharynx, moist oral and nasal mucosa. Tympanic membrane , nose , throat clear. Neck: Trachea midline. Supple, full range of motion, no JVD, bruit , hepatojugular reflex , lymphadenopathy or masses, or other lesions Cardiac: Regular rhythm, regular rate no murmurs, rubs, or gallops. Normal S1 and S2, no S3 noticed. PMI is normal. Respiratory: Equal breath sounds bilaterally, no tachypnea; lungs clear to auscultation bilaterally, no wheezing ,rub or rales, or crackles. Chest wall is symmetric and without deformity. No signs of trauma. Chest wall is nontender. No signs of respiratory distress. Resonance is normal upon percussion bilaterally. Left-sided chest tube in place functional Gastrointestinal: Abdomen symmetric, non-distended, soft, non-tender, normal bowel sounds x4 quadrant, normoactive, no hepatosplenomegaly , no masses , no bruit, no flank pain bilaterally. No voluntary guarding, rebound, or rigidity. No tenderness to percussion. No pulsatile masses. Equal femoral pulses. No Willis's sign or McBurney point tenderness. Back; no CVA tenderness bilaterally, no deformities. Neck and back are without deformity as well. No tenderness noted on palpation of the spinous processes. Spinous processes are midline. Cervical, thoracic, and lumbar paraspinal muscles are not tender and are without spasm. Musculoskeletal: Extremities, normal range of motion, non-tender, muscle strength 5/5 x 4. Negative Homans signs bilaterally on lower extremity. Distal pulses full symmetrical, no clubbing, cyanosis , edema. Neurological: Speech is clear, alert, and oriented x 4. No motor or sensory deficit, deep tendon reflexes normal, cerebellar intact. Cranial nerves II-XII intact. Psych: Alert and or appropriate, normal affect. Vascular: Good distal pulses, which are equal x4; capillary refill less than 2 seconds. Lymphatic, no lymphadenopathy. Result Diagram: 12/23/24 1545 12/23/24 154 Coagulation Studies Laboratory Tests Test 12/21/24 11:25 Prothrombin Time 11.1 SECONDS (9.0-12.0) INR International Normalized Ratio 1.1 INR Coagulation Comments Problem\Assessment\Plan Assessment History of breast cancer, followed up by oncologist Large left pleural effusion associated with trapped lung Status post left side chest tube placement by interventional radiologist Acute respiratory failure secondary to hypoxia History of thoracocentesis June 2024 on the left side of the chest Chronic pain syndrome on home opioids Leukopenia Hypoalbuminemia Cardiomegaly Plan IV fluids keep patient well hydrated euvolemic Pain control, p.o. IV analgesics Cardiothoracic surgeon is on the case for possible pleurodesis procedure today Additional lab work pending Reconciled home medications DVT gastropathy prophylaxis addressed Sepsis Screening Reassessment Date: Dec 23, 2024 Date of Service: Dec 23, 2024 Billing Provider: ADEEL TUTTLE MD Common Visit Codes: [id number] INP/OBS CARE(HIGH) ADEEL TUTTLE MD Dec 23, 2024 17:35
[2024-12-23] MEDS: docusate sodium 100mg/10ml UD cup PO SCH (20:40)
[2024-12-23] MEDS ORDERED: acetaminophen 325mg/10.15ml oral unit dose solution NG PRN (20:46)
[2024-12-23] MEDS ORDERED: DEXTROSE 15 GM of carb/4 tabs (each vial/BOTTLE has 4 tablets) NG PRN ×2 (20:47→20:50)
[2024-12-23] MEDS ORDERED: mag hydrox/Alum hydrox/simeth 30ml oral suspension NG PRN (20:52)
[2024-12-23] MEDS ORDERED: magnesium hydroxide 30ml (MOM) UD suspension NG PRN (20:54)
[2024-12-23] MEDS ORDERED: POTASSIUM CHLORIDE 20 MEQ/15 ML oral solution NG PRN ×2 (20:55→20:56)
[2024-12-24] VITALS (32 sets, daily range): BP systolic 57–126; BP diastolic 35–68; PULSE 72–98; RESP 10–24; O2SAT 93–100
[2024-12-24 02:34] LABS: ABG BASE EXCESS 3.0 mmol/L (-2.0-3.0); ABG HCO3 25.2 mmol/L (21.0-28.0); ABG OXYGEN SATURATION 98.9 % (94.0-98.0); ABG PCO2 (T) 32.1 mmHg (32.0-45.0); ABG PH (T) 7.515 (7.350-7.450); ABG PO2 (T) 129.7 mmHg (83.0-108.0); ALLEN'S TEST Modified; FCOHb 1.1 % (0.5-1.5); FHHb 1.1 % (0.0-5.0); FIO2 30.0 mmHg/%; FMetHb 0.3 % (0.0-1.5); FO2Hb 97.5 % (94.0-98.0); MODE VENT - SIMV; PATIENT TEMPERATURE 37.9; PEEP 10 cm H2O; RESPIRATORY RATE 12 b/min; TIDAL VOLUME 600 mL; TOTAL HEMOGLOBIN 12.0 G/dl (12.0-16.0)
[2024-12-24] MEDS: ringers solution, lacted 1,000 ML IV SCH (05:43)
[2024-12-24 05:58] LABS: MEAN PLATELET VOLUME 7.2 FL (7.4-10.4); RED CELL DISTRIBUTION WIDTH 16.9 % (11.5-14.5)
[2024-12-24 06:29] LABS: CREATININE 0.73 MG/DL (0.40-0.90); PHOSPHORUS 2.5 MG/DL (2.3-4.5); TOTAL CARBON DIOXIDE 26.3 MMOL/L (24-32); eCRCL 73 ML/MIN; eGFR 79 ML/MIN
--- NOTE | 2024-12-24 07:32 | RADIOLOGY REPORT ---
DI CHEST,SINGLE VIEW, HISTORY: POST OP COMPARISON: DI CHEST,SINGLE VIEW on DOS: 12/23/24, DI CHEST,SINGLE VIEW on DOS: 12/23/24, CT CT CHEST on DOS: 12/22/24 DI CHEST,SINGLE VIEW on DOS: 12/23/24, DI CHEST,SINGLE VIEW on DOS: 12/23/24, CT CT CHEST on DOS: 12/22/24 TECHNICAL DATA: 1 view of the chest was obtained. FINDINGS: Lines and tubes: Similar lines and tubes. Cardiomediastinal silhouette: normal Pulmonary vasculature: normal Lung expansion: normal Lung airspace: Similar patchy airspace opacity in the left lung. Lung interstitium: Prominent Pleura: normal Pneumothorax: Similar left pneumothorax. Bones: Unremarkable Other: Similar left chest wall emphysema. IMPRESSION: Similar lines and tubes. Similar patchy airspace opacity in the left lung. Similar left pneumothorax. Similar left chest wall emphysema.
[2024-12-24] MEDS: ketorolac trometh 30MG/ML vial 30 MG/ML VIAL IM ONE (07:55)
[2024-12-24] MEDS: docusate sodium 100mg/10ml UD cup NG SCH (08:00)
[2024-12-24] MEDS: ketorolac trometh 15mg/ml vial 15 MG/ML ML IV SCH (08:00)
[2024-12-24] MEDS ORDERED: propofol 1000mg/100ml bottle 100 ML IV SCH (08:45)
[2024-12-24] MEDS: dexmedetomidin/NS 400mcg/100ml 100 ML IV SCH (09:20)
[2024-12-24] MEDS: albumin (Human) 5% 250ml 250 ML IV ONE (09:58)
[2024-12-24] MEDS: GABAPENTIN 300 MG/6 ML oral SOLUTION cup NG SCH (10:21)
[2024-12-24] MEDS: INSULIN LISPRO 100 UNIT/ML INSULN.PEN MULTI-DOSE SQ SCH ×2 (14:27→17:23)
--- NOTE | 2024-12-24 15:34 | PROGRESS NOTE ---
Daily Progress Note Providers to CC Patient sedated, on ventilator ~ Central Line/PICC still needed: No Sylvester-Non Protocol Sylvester Indications Met/Not Met: F/C Indications Not Met Antibiotic Timeout Antibiotic Ordered?: Yes Subjective As above Objective Vital Signs Date Time Temp Pulse Resp B/P (MAP) Pulse Ox O2 Delivery O2 Flow Rate FiO2 12/24/24 13:58 99.1 81 23 96/66 (76) 99 Nasal Cannula 4.0 12/24/24 12:03 24 Vital signs, stable ,afebrile. Pulse Oximetry reflects adequate oxygenation. FiO2 30%, on ventilator General: well developed, well nourished. Sedated, resting comfortably in the bed, in no acute distress . Skin: Warm, dry, no pallor, no rash or petechiae. HEENT: Atraumatic, normocephalic, EOMI, anicteric sclera B; pink conjunctiva; PERRLA, normal oropharynx, moist oral and nasal mucosa. Tympanic membrane , nose , throat clear. Neck: Trachea midline. Supple, full range of motion, no JVD, bruit , hepatojugular reflex , lymphadenopathy or masses, or other lesions Cardiac: Regular rhythm, regular rate no murmurs, rubs, or gallops. Normal S1 and S2, no S3 noticed. PMI is normal. Respiratory: Equal breath sounds bilaterally, no tachypnea; lungs clear to auscultation bilaterally, no wheezing ,rub or rales, or crackles. Chest wall is symmetric and without deformity. No signs of trauma. Chest wall is nontender. No signs of respiratory distress. Resonance is normal upon percussion bilaterally. Chest tube left-sided functional in place, well-seated Gastrointestinal: Abdomen symmetric, non-distended, soft, non-tender, normal bowel sounds x4 quadrant, normoactive, no hepatosplenomegaly , no masses , no bruit, no flank pain bilaterally. No voluntary guarding, rebound, or rigidity. No tenderness to percussion. No pulsatile masses. Equal femoral pulses. No Willis's sign or McBurney point tenderness. Back; no CVA tenderness bilaterally, no deformities. Neck and back are without deformity as well. No tenderness noted on palpation of the spinous processes. Spinous processes are midline. Cervical, thoracic, and lumbar paraspinal muscles are not tender and are without spasm. Musculoskeletal: Extremities, normal range of motion, non-tender, muscle strength 5/5 x 4. Negative Homans signs bilaterally on lower extremity. Distal pulses full symmetrical, no clubbing, cyanosis , edema. Neurological: Sedated, on ventilator Vascular: Good distal pulses, which are equal x4; capillary refill less than 2 seconds. Lymphatic, no lymphadenopathy. Result Diagram: 12/24/2452512/24/24525 Coagulation Studies Laboratory Tests Test 12/21/24 11:25 Prothrombin Time 11.1 SECONDS (9.0-12.0) INR International Normalized Ratio 1.1 INR Coagulation Comments Problem\Assessment\Plan Assessment History of breast cancer, followed up by oncologist Large left pleural effusion associated with trapped lung Status post left side chest tube placement by interventional radiologist Status post surgery left side of the chest pleurodesis postoperative day 1, good recovery Acute respiratory failure secondary to hypoxia History of thoracocentesis June 2024 on the left side of the chest Chronic pain syndrome on home opioids Leukopenia Hypoalbuminemia Cardiomegaly Plan IV fluids keep patient well hydrated euvolemic Pain control, p.o. IV analgesics Cardiothoracic surgeon managing surgical problems Additional lab work pending Reconciled home medications DVT gastropathy prophylaxis addressed Sepsis Screening Reassessment Date: Dec 24, 2024 Date of Service: Dec 24, 2024 Billing Provider: ADEEL TUTTLE MD Common Visit Codes: [id number] INP/OBS CARE(HIGH) ADEEL TUTTLE MD Dec 24, 2024 15:33
[2024-12-24] MEDS: ceFAZolin/D5W- 1GM premix 50 ML IV SCH (16:05)
--- NOTE | 2024-12-24 16:52 | PROGRESS NOTE ---
Progress Note Dictate Providers to CC CC: LAVERNE PEREZ MD ~ Progress Note: Subsequent surgical care on a 69-year-old woman who is postoperative day 1 status post: * Fluoroscopic exploration of left pleural space. * Left thoracotomy. * Decortication of the lower lobe. * Partial parietal pleurectomy. * Pleural tent. * Chest tube placement. * Pleurx catheter placement. Covering for Dr. Nolan Medina over the next couple of days Patient remains intubated Moderate air leak noted Drainage output noted Appreciate medical and critical care management of this patient by the vibrator operator service I will continue to follow as well Dr. Nolan Medina when he returns Continue chest tube to -20 cm of water Antibiotic Ordered?: Yes Objective Vitals Vital Signs Date Time Temp Pulse Resp B/P (MAP) Pulse Ox O2 Delivery O2 Flow Rate FiO2 12/24/24 16:07 99.1 81 23 96/66 (76) 99 Nasal Cannula 4.0 12/24/24 12:03 24 Lab Results: 12/24/24 0526 12/24/24 0526 Coagulation Studies Laboratory Tests Test 12/21/24 11:25 Prothrombin Time 11.1 SECONDS (9.0-12.0) INR International Normalized Ratio 1.1 INR Coagulation Comments LAVERNE PEREZ MD Dec 24, 2024 16:52
[2024-12-24] MEDS: HYDROmorph/NS 0.2 mg/ml PCA 100 ML IV SCH (17:00)
[2024-12-24] MEDS ORDERED: DEXTROSE 15 GM of carb/4 tabs (each vial/BOTTLE has 4 tablets) PO PRN ×2 (20:00→20:02)
[2024-12-24] MEDS: mineral oil/petrolatum ophthal oint EACHEYE SCH (20:00)
[2024-12-24] MEDS ORDERED: mag hydrox/Alum hydrox/simeth 30ml oral suspension PO PRN (20:06)
[2024-12-24] MEDS ORDERED: magnesium hydroxide 30ml (MOM) UD suspension PO PRN (20:07)
[2024-12-24] MEDS: docusate sod 100mg capsule PO SCH (20:10)
[2024-12-25] VITALS (25 sets, daily range): BP systolic 87–138; BP diastolic 33–78; PULSE 71–99; RESP 14–30; O2SAT 90–99
--- NOTE | 2024-12-25 07:14 | RADIOLOGY REPORT ---
CHEST RADIOGRAPH Indication: POST OP Technique: Single frontal view of the chest was obtained Comparison: DI CHEST SINGLE VIEW on DOS: 12/24/24 FINDINGS: Lines and Tubes: There is a left apically oriented chest tube which is unchanged. Left basal chest tube also unchanged. The enteric tube has been removed. Lungs: Bilateral alveolar and interstitial opacities are unchanged. Pleura: No effusion. Stable left pneumothorax. Cardiomediastinal contours: Unremarkable Bones: No acute osseous abnormality. Diffuse left chest wall subcutaneous emphysema, similar to prior study. IMPRESSION: 1. Stable left pneumothorax. Left-sided chest tubes are unchanged in position. 2. Stable bilateral alveolar and interstitial opacities.
[2024-12-25 09:05] LABS: MEAN PLATELET VOLUME 7.6 FL (7.4-10.4); RED CELL DISTRIBUTION WIDTH 16.5 % (11.5-14.5)
[2024-12-25 09:14] LABS: CREATININE 0.50 MG/DL (0.40-0.90); TOTAL CARBON DIOXIDE 31.4 MMOL/L (24-32); eCRCL 107 ML/MIN; eGFR > 90 ML/MIN
[2024-12-25 10:13] LABS: PHOSPHORUS 2.2 MG/DL (2.3-4.5)
[2024-12-25] MEDS ORDERED: SODIUM PHOSPHATE IN D5W 260 ML IV PRN (12:30)
[2024-12-25] MEDS ORDERED: mineral oil/petrolatum ophthal oint EACHEYE SCH (14:00)
[2024-12-25] MEDS: sodium phos 15mmol/D5 255mL 255 ML IV PRN (14:17)
--- NOTE | 2024-12-25 16:27 | PROGRESS NOTE ---
Daily Progress Note Providers to CC ~ Antibiotic Timeout Antibiotic Ordered?: No Subjective Patient is seen in CICU sitting on chair. Chest tube in place over left lower lungs. Patient is on room air saturating well Objective Vital Signs Date Time Temp Pulse Resp B/P (MAP) Pulse Ox O2 Delivery O2 Flow Rate FiO2 12/25/24 15:18 18 12/25/24 15:00 76 119/62 (81) 97 Room Air 12/25/24 12:00 97.9 12/24/24 21:00 1.0 12/24/24 12:03 24 Result Diagram: 12/25/24 0756 12/25/24 0756 General-patient not in any acute distress, alert awake oriented, age-appropriate HEENT-atraumatic normocephalic, neck supple without elevated JVD, no thyromegaly or carotid bruit. No lymphadenopathy bilaterally. Eyes-no icterus or pallor seen in eyes Chest-decreased lung sounds over left lung to auscultation , breathing nonlabored no tachypnea, no wheezing, no crepitation, no crackles. Heart-S1-S2 normal, regular heart rate no murmur Abdomen bowel sounds positive on auscultation, soft nondistended nontender no guarding, no rigidity Neurology-grossly intact, nonfocal alert awake oriented Extremity- no pedal edema able to move all 4 extremities Psychiatry - patient is not confused or agitated cooperated during physical examination Coagulation Studies Laboratory Tests Test 12/21/24 11:25 Prothrombin Time 11.1 SECONDS (9.0-12.0) INR International Normalized Ratio 1.1 INR Coagulation Comments Problem\Assessment\Plan This is a 69 years old female with history of breast cancer, followed by oncologist, history of left side large pleural effusion, treated with thoracocentesis June 2024, history of chronic pain syndrome on home opioids, anemia, leukopenia, hypoalbuminemia, cardiomegaly, presented today to the hospital with chief complaint shortness of breath and large left pleural effusion, patient had procedure done by interventional radiologist, Dr. Tristan left side of the chest was placed chest tube, and decision was made to admit patient for further evaluation and treatment including consultation by Cardiothoracic surgeon Dr. Medina. History of breast cancer, followed up by oncologist Dr. Perkins. On Arimidex Large left pleural effusion associated with trapped lung, Status post left side chest tube placement by interventional radiologist, on Pain control meds , p.o. IV analgesics Status post surgery left side of the chest pleurodesis postoperative day 1, good recovery Acute respiratory failure secondary to hypoxia History of thoracocentesis June 2024 on the left side of the chest Chronic pain syndrome on home opioids- on Pain control meds , p.o. IV analgesics Leukopenia Hypoalbuminemia Cardiomegaly Reconciled home medications DVT gastropathy prophylaxis addressed Current condition is guarded we will continue to follow patient in CICU. Further management as per Dr. Medina. Date of Service: Dec 25, 2024 Billing Provider: OSVALDO JHAVERI MD Common Visit Codes: [id number] INP/OBS CARE(MOD) OSVALDO JHAVERI MD Dec 25, 2024 16:27
--- NOTE | 2024-12-25 19:18 | PROGRESS NOTE ---
Progress Note Dictate Providers to CC CC: LAVERNE PEREZ MD ~ Progress Note: Subsequent surgical care on a 69-year-old woman who is postoperative day 2 status post: * Fluoroscopic exploration of left pleural space. * Left thoracotomy. * Decortication of the lower lobe. * Partial parietal pleurectomy. * Pleural tent. * Chest tube placement. * Pleurx catheter placement. Covering for Dr. Nolan Medina over the next couple of days Patient extubated yesterday afternoon and no breathing issues Chest x-ray stable Moderate air leak noted, but slightly improved from yesterday Drainage output noted to be about 800 cc over the past 24 hours No crepitus Incision dressed I will continue to follow as well Dr. Nolan Medina when he returns Continue chest tube to -20 cm of water Antibiotic Ordered?: Yes Objective Vitals Vital Signs Date Time Temp Pulse Resp B/P (MAP) Pulse Ox O2 Delivery O2 Flow Rate FiO2 12/25/24 17:59 79 20 123/75 (91) 97 Room Air 12/25/24 16:51 0 21 12/25/24 16:00 97.7 Lab Results: 12/25/24 0756 12/25/24 0756 Coagulation Studies Laboratory Tests Test 12/21/24 11:25 Prothrombin Time 11.1 SECONDS (9.0-12.0) INR International Normalized Ratio 1.1 INR Coagulation Comments LAVERNE PEREZ MD Dec 25, 2024 19:18
[2024-12-26] VITALS (19 sets, daily range): BP systolic 112–137; BP diastolic 60–74; PULSE 67–82; RESP 12–29; TEMP 97.3–98.5; O2SAT 95–99
--- NOTE | 2024-12-26 05:52 | RADIOLOGY REPORT ---
CHEST RADIOGRAPH Indication: POST OP Technique: Single frontal view of the chest was obtained COMPARISON: DI CHEST,SINGLE VIEW on DOS: 12/25/24, DI CHEST,SINGLE VIEW on DOS: 12/24/24, DI CHEST,SINGLE VIEW on DOS: 12/23/24, DI CHEST,SINGLE VIEW on DOS: 12/23/24, XR CHEST 1 VIEW AP OR PA on DOS: 08/24/24 FINDINGS: Lines and Tubes: Left chest tube stable in position. Lungs: Stable appearing multifocal left hemithoracic pulmonary airspace disease. Mild diffuse increased prominence of the pulmonary vasculature. No appreciable pneumothorax. Moderate left supraclavicular, axillary and lateral chest wall subcutaneous emphysema redemonstrated. Cardiomediastinal contours: Unremarkable Bones: Unremarkable IMPRESSION: 1. Stable left chest tube. 2. No appreciable pneumothorax. 3. Stable left hemithoracic pulmonary airspace disease and mild diffuse increased prominence of the pulmonary vasculature.
[2024-12-26 09:07] LABS: MEAN PLATELET VOLUME 7.1 FL (7.4-10.4); RED CELL DISTRIBUTION WIDTH 17.3 % (11.5-14.5)
[2024-12-26 09:21] LABS: CREATININE 0.57 MG/DL (0.40-0.90); PHOSPHORUS 3.0 MG/DL (2.3-4.5); TOTAL CARBON DIOXIDE 28.7 MMOL/L (24-32); eCRCL 94 ML/MIN; eGFR > 90 ML/MIN
--- NOTE | 2024-12-26 13:16 | PROGRESS NOTE ---
Progress Note ID Providers to CC ~ Progress Note Progress Note: pain improving/vss/lungs-persistent leak/cxr noted/labs noted a/p 1. s/p decortication-continues to improve-transfer to tele-cont pt MEJIA MEDINA MD Dec 26, 2024 13:16
[2024-12-26] MEDS: Ensure Enlive - 237ML PO SCH (17:30)
--- NOTE | 2024-12-26 18:52 | PROGRESS NOTE ---
Daily Progress Note Providers to CC ~ Antibiotic Timeout Antibiotic Ordered?: Yes Subjective Patient is seen in PCU, she is on room air saturating well chest tube present over left lower lung. Objective Vital Signs Date Time Temp Pulse Resp B/P (MAP) Pulse Ox O2 Delivery O2 Flow Rate FiO2 12/26/24 17:01 68 16 96 Room Air* 0 21 12/26/24 16:00 98.0 125/74 (91) Result Diagram: 12/26/24 0753 12/26/24 0753 General-patient not in any acute distress, alert awake oriented, age-appropriate HEENT-atraumatic normocephalic, neck supple without elevated JVD, no thyromegaly or carotid bruit. No lymphadenopathy bilaterally. Eyes-no icterus or pallor seen in eyes Chest-decreased lung sounds over left lung to auscultation , breathing nonlabored no tachypnea, no wheezing, no crepitation, no crackles. left side chest tube placed Heart-S1-S2 normal, regular heart rate no murmur Abdomen bowel sounds positive on auscultation, soft nondistended nontender no guarding, no rigidity Neurology-grossly intact, nonfocal alert awake oriented Extremity- no pedal edema able to move all 4 extremities Psychiatry - patient is not confused or agitated cooperated during physical examination Coagulation Studies Laboratory Tests Test 12/21/24 11:25 Prothrombin Time 11.1 SECONDS (9.0-12.0) INR International Normalized Ratio 1.1 INR Coagulation Comments Problem\Assessment\Plan This is a 69 years old female with history of breast cancer, followed by oncologist, history of left side large pleural effusion, treated with thoracocentesis June 2024, history of chronic pain syndrome on home opioids, anemia, leukopenia, hypoalbuminemia, cardiomegaly, presented today to the hospital with chief complaint shortness of breath and large left pleural effusion, patient had procedure done by interventional radiologistDr. Tristan left side of the chest was placed chest tube, and decision was made to admit patient for further evaluation and treatment including consultation by Cardiothoracic surgeon Dr. Medina. History of breast cancer, followed up by oncologist Dr. Perkins. On Arimidex Large left pleural effusion associated with trapped lung, Status post left side chest tube placement by interventional radiologist, on Pain control meds , p.o. IV analgesics Status post surgery left side of the chest pleurodesis postoperative day 1, good recovery Acute respiratory failure secondary to hypoxia History of thoracocentesis June 2024 on the left side of the chest Chronic pain syndrome on home opioids- on Pain control meds , p.o. IV analgesics Leukopenia Hypoalbuminemia Cardiomegaly Reconciled home medications DVT gastropathy prophylaxis addressed Current condition is guarded we will continue to follow patient in PCU. Further management as per Dr. Medina. Date of Service: Dec 26, 2024 Billing Provider: OSVALDO JHAVERI MD Common Visit Codes: [id number] INP/OBS CARE(HIGH) OSVALDO JHAVERI MD Dec 26, 2024 18:52
[2024-12-27] VITALS (8 sets, daily range): BP systolic 95–135; BP diastolic 38–78; PULSE 75–76; RESP 12–21; TEMP 97.3–98.6; O2SAT 94–98
--- NOTE | 2024-12-27 06:56 | RADIOLOGY REPORT ---
CHEST RADIOGRAPH Indication: POST OP Technique: Single frontal view of the chest was obtained Comparison: DI CHEST,SINGLE VIEW on DOS: 12/26/24 FINDINGS: Lines and Tubes: 3 left-sided chest tubes are unchanged in position. Lungs: Left upper and lower lobe airspace disease similar to prior study. Pleura: No effusion. Left basilar pneumothorax noted similar to prior studies. Cardiomediastinal contours: Stable Cardiovascular silhouette. Bones: No acute osseous abnormality. Soft tissues: Left chest wall and neck subcutaneous emphysema. IMPRESSION: 1. Left chest tubes unchanged in position. 2. Persistent left basilar pneumothorax. 3. Diffuse left chest wall subcutaneous emphysema unchanged. 4. Left upper and lower lobe airspace disease, unchanged.
[2024-12-27] MEDS ORDERED: iohexol 300mg/ml 100ml inj. ONE (15:34)
--- NOTE | 2024-12-27 17:13 | PROGRESS NOTE ---
Progress Note ID Providers to CC ~ Progress Note Progress Note: pain improving/vss/lungs-persistent leak/ct noted a/p 1. s/p decorticcation-slow progress/cont pt MEJIA MEDINA MD Dec 27, 2024 17:13
--- NOTE | 2024-12-27 17:43 | RADIOLOGY REPORT ---
Procedure: CT CT CHEST W/ IV CONTRAST 12/27/2024 03:37 PM History: trapped lung Comparison: DI CHEST,SINGLE VIEW on DOS: 12/27/24, DI CHEST,SINGLE VIEW on DOS: 12/26/24, DI CHEST,SINGLE VIEW on DOS: 12/25/24, DI CHEST,SINGLE VIEW on DOS: 12/24/24, DI CHEST,SINGLE VIEW on DOS: 12/23/24 Technique: After the uneventful administration of contrast intravenously, CT imaging was performed through the chest. Coronal and sagittal reformations were performed by the technologist. Radiation Dose : CT Dose: CTDI volume is 60.56 mGy. Dose-length product is 649.29 mGy*cm CONTRAST: Type of contrast: Omnipaque 300 Contrast injected: 100 ml Findings: Lower neck: Normal thyroid. Lungs: Only partial re-expansion of the left lower lobe, essentially trapped. Heart/Vascular Structures: Normal heart size. No pericardial effusion. Lymph Nodes: No adenopathy Pleura: 2 chest tubes within the left mark thorax. Moderate residual pneumothorax. Volume of pleural fluid on the left has decreased, now small. Musculoskeletal: No acute osseous abnormality. Soft tissues: Right breast implant. Large volume of subcutaneous emphysema on the left, significantly increased from previous.. Upper abdomen: Limited portions of the upper abdomen are unremarkable. IMPRESSION: Minimal re-expansion of the left lung which appears trapped. Moderate left-sided pneumothorax. Small residual volume of left pleural fluid. Worsening subcutaneous emphysema on the left.
--- NOTE | 2024-12-27 18:56 | PROGRESS NOTE ---
Daily Progress Note Providers to CC ~ Antibiotic Timeout Antibiotic Ordered?: No Subjective The patient continues to have 590 mL out in the chest tube today a CT scan was ordered- is following. The patient has no acute complaints Objective Vital Signs Date Time Temp Pulse Resp B/P (MAP) Pulse Ox O2 Delivery O2 Flow Rate FiO2 12/27/24 17:00 14 12/27/24 15:00 97.4 76 118/57 (77) 94 Room Air 12/26/24 19:30 0 21 Result Diagram: 12/26/24 0753 12/26/24 0753 Gen. No acute distress alert and oriented 4 Lungs clear to ascultation bilaterally, no wheezes rales or rhonchi appreciated, diminished breath sounds on the left lung Heart normal sinus rhythm no murmurs rubs or clicks noted Abdomen soft nontender bowel sounds are normoactive Lower extremities no clubbing cyanosis, nor edema appreciated bilaterally Coagulation Studies Laboratory Tests Test 12/21/24 11:25 Prothrombin Time 11.1 SECONDS (9.0-12.0) INR International Normalized Ratio 1.1 INR Coagulation Comments Problem\Assessment\Plan This is a 69 years old female with history of breast cancer, followed by oncologist, history of left side large pleural effusion, treated with thoracocentesis June 2024, history of chronic pain syndrome on home opioids, anemia, leukopenia, hypoalbuminemia, cardiomegaly, presented today to the hospital with chief complaint shortness of breath and large left pleural effusion, patient had procedure done by interventional radiologistDr. Tristan left side of the chest was placed chest tube, and decision was made to admit patient for further evaluation and treatment including consultation by Cardiothoracic surgeon Dr. Medina. History of breast cancer, followed up by oncologist Dr. Perkins. On Arimidex Large left pleural effusion associated with trapped lung, Status post left side chest tube placement by interventional radiologist, on Pain control meds , p.o. IV analgesics 12/27/24 Dr. Medina is following Acute respiratory failure secondary to hypoxia 12/27/24 resolved History of thoracocentesis June 2024 on the left side of the chest Chronic pain syndrome on home opioids- on Pain control meds , p.o. 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 Further management as per Dr. Medina. Date of Service: Dec 27, 2024 Billing Provider: LYNDON CORNELL DO Common Visit Codes: [id number] INP/OBS CARE(HIGH) LYNDON CORNELL DO Dec 27, 2024 18:56
[2024-12-27] MEDS: enoxaparin 40mg/0.4ml syringe SUBCUT SCH (20:40)
[2024-12-28] VITALS (9 sets, daily range): BP systolic 103–129; BP diastolic 46–70; PULSE 69–79; RESP 14–19; TEMP 97.4–98.5; O2SAT 94–97
[2024-12-28 06:43] LABS: MEAN PLATELET VOLUME 7.1 FL (7.4-10.4); RED CELL DISTRIBUTION WIDTH 16.6 % (11.5-14.5)
[2024-12-28 07:02] LABS: CREATININE 0.54 MG/DL (0.40-0.90); TOTAL CARBON DIOXIDE 30.8 MMOL/L (24-32); eCRCL 99 ML/MIN; eGFR > 90 ML/MIN
[2024-12-28 07:29] LABS: EOSINOPHILS % (MANUAL) 1.0 % (0-6); LYMPHOCYTES % (MANUAL) 16.0 % (21-51); MONOCYTES % (MANUAL) 6.0 % (2-12); NEUTROPHILS % (MANUAL) 77.0 % (42-75)
--- NOTE | 2024-12-28 07:29 | RADIOLOGY REPORT ---
CHEST RADIOGRAPH Indication: chest tubes Technique: Single frontal view of the chest was obtained Comparison: DI CHEST,SINGLE VIEW on DOS: 12/27/24, DI CHEST,SINGLE VIEW on DOS: 12/26/24, DI CHEST,SINGLE VIEW on DOS: 12/25/24, DI CHEST,SINGLE VIEW on DOS: 12/24/24, DI CHEST,SINGLE VIEW on DOS: 12/23/24, DI CHEST,SINGLE VIEW on DOS: 12/27/24 FINDINGS: Lines and Tubes: 3 left-sided chest tubes are unchanged in position. Lungs: Left upper and lower lobe airspace disease similar to prior study. Pleura: No effusion. Left basilar pneumothorax noted similar to prior studies. Cardiomediastinal contours: Stable Cardiovascular silhouette. Bones: No acute osseous abnormality. Soft tissues: Left chest wall and neck subcutaneous emphysema. IMPRESSION: 1. Left chest tubes unchanged in position. 2. Persistent left basilar pneumothorax. 3. Diffuse left chest wall subcutaneous emphysema unchanged. 4. Left upper and lower lobe airspace disease, unchanged.
[2024-12-28 07:30] LABS: PLATELET ESTIMATE NORMAL
--- NOTE | 2024-12-28 14:16 | PROGRESS NOTE ---
Progress Note ID Providers to CC ~ Progress Note Progress Note: pain improving/vss/lungs-air leak improving/labs noted a/p 1. s/p decortication-doing well/cont suction MEJIA MEDINA MD Dec 28, 2024 14:16
--- NOTE | 2024-12-28 20:26 | PROGRESS NOTE ---
Daily Progress Note Providers to CC ~ Antibiotic Timeout Antibiotic Ordered?: Yes Subjective The patient has air leak is improving that has significant less drainage in the chest tube today per surgeon continue chest tube to suction. Objective Vital Signs Date Time Temp Pulse Resp B/P (MAP) Pulse Ox O2 Delivery O2 Flow Rate FiO2 12/28/24 20:18 16 12/28/24 19:58 71 96 Room Air* 0 21 12/28/24 11:00 98.4 117/60 (79) Result Diagram: 12/28/24 0612 12/28/24 0612 Gen. No acute distress alert and oriented 4 Lungs clear to ascultation bilaterally, no wheezes rales or rhonchi appreciated, diminished breath sounds on the left lung Heart normal sinus rhythm no murmurs rubs or clicks noted Abdomen soft nontender bowel sounds are normoactive Lower extremities no clubbing cyanosis, nor edema appreciated bilaterally Coagulation Studies Laboratory Tests Test 12/21/24 11:25 Prothrombin Time 11.1 SECONDS (9.0-12.0) INR International Normalized Ratio 1.1 INR Coagulation Comments Problem\Assessment\Plan This is a 69 years old female with history of breast cancer, followed by oncologist, history of left side large pleural effusion, treated with thoracocentesis June 2024, history of chronic pain syndrome on home opioids, anemia, leukopenia, hypoalbuminemia, cardiomegaly, presented today to the hospital with chief complaint shortness of breath and large left pleural effusion, patient had procedure done by interventional radiologistDr. Tristan left side of the chest was placed chest tube, and decision was made to admit patient for further evaluation and treatment including consultation by Cardiothoracic surgeon Dr. Medina. History of breast cancer, followed up by oncologist Dr. Perkins. On Arimidex Large left pleural effusion associated with trapped lung, Status post left side chest tube placement by interventional radiologist, on Pain control meds , p.o. IV analgesics 12/27/24 Dr. Medina is following 12/18/24 chest tube drainage is downtrending significantly today- per Dr Medina continue chest tube to suction. Acute respiratory failure secondary to hypoxia 12/27/24 resolved History of thoracocentesis June 2024 on the left side of the chest Chronic pain syndrome on home opioids- on Pain control meds , p.o. IV analgesics Leukocytopenia- Likely secondary to oncological process Continue monitor daily labs Moderate protein calorie malnutrition T[employer] Buffer is following Cardiomegaly DVT gastropathy prophylaxis addressed Current condition is guarded we will continue to follow patient in PCU. Further management as per Dr. Medina. Date of Service: Dec 28, 2024 Billing Provider: LYNDON CORNELL DO Common Visit Codes: [id number] INP/OBS CARE(HIGH) LYNDON CORNELL DO Dec 28, 2024 20:26
[2024-12-29] VITALS (9 sets, daily range): BP systolic 104–116; BP diastolic 48–75; PULSE 63–85; RESP 14–20; TEMP 97–97.6; O2SAT 92–98
[2024-12-29 06:56] LABS: MEAN PLATELET VOLUME 6.9 FL (7.4-10.4); RED CELL DISTRIBUTION WIDTH 16.6 % (11.5-14.5)
[2024-12-29 07:16] LABS: CREATININE 0.75 MG/DL (0.40-0.90); TOTAL CARBON DIOXIDE 30.0 MMOL/L (24-32); eCRCL 71 ML/MIN; eGFR 77 ML/MIN
--- NOTE | 2024-12-29 07:54 | RADIOLOGY REPORT ---
CHEST RADIOGRAPH Indication: POST OP Technique: Single frontal view of the chest was obtained Comparison: DI CHEST,SINGLE VIEW on DOS: 12/28/24, DI CHEST,SINGLE VIEW on DOS: 12/27/24, DI CHEST,SINGLE VIEW on DOS: 12/26/24, DI CHEST,SINGLE VIEW on DOS: 12/25/24, DI CHEST,SINGLE VIEW on DOS: 12/24/24, DI CHEST,SINGLE VIEW on DOS: 12/28/24 FINDINGS: Lines and Tubes: 3 left-sided chest tubes are unchanged in position. Lungs: Left upper and lower lobe airspace disease similar to prior study. Pleura: No effusion. Left basilar pneumothorax noted similar to prior studies. Cardiomediastinal contours: Stable Cardiovascular silhouette. Bones: No acute osseous abnormality. Soft tissues: Left chest wall and neck subcutaneous emphysema. IMPRESSION: No interval change.
[2024-12-29 08:44] LABS: EOSINOPHILS % (MANUAL) 2.0 % (0-6); LYMPHOCYTES % (MANUAL) 15.0 % (21-51); MONOCYTES % (MANUAL) 10.0 % (2-12); NEUTROPHILS % (MANUAL) 73.0 % (42-75); PLATELET ESTIMATE NORMAL
--- NOTE | 2024-12-29 16:55 | PROGRESS NOTE ---
Progress Note ID Providers to CC ~ Progress Note Progress Note: doing well/trial of waterseal in am MEJIA MEDINA MD Dec 29, 2024 16:55
[2024-12-29] MEDS: GLUCERNA THERAPEUTIC NUTRITION 237mL bottle PO SCH (18:04)
--- NOTE | 2024-12-29 19:11 | PROGRESS NOTE ---
Daily Progress Note Providers to CC ~ Antibiotic Timeout Antibiotic Ordered?: Yes Subjective Mrs. Baltazar is doing well she is ambulating around the PCU unit with any problems. Anticipate per surgeon the chest tube will be placed on water-seal tomorrow and per nursing anticipate discharge on WednesdayJanuary 01 Objective Vital Signs Date Time Temp Pulse Resp B/P (MAP) Pulse Ox O2 Delivery O2 Flow Rate FiO2 12/29/24 17:00 16 12/29/24 15:07 Room Air 0.0 21 12/29/24 15:00 97.4 77 110/56 (74) 98 Result Diagram: 12/29/2462812/29/24628 Gen. No acute distress alert and oriented 4 Lungs clear to ascultation bilaterally, no wheezes rales or rhonchi appreciated, diminished breath sounds on the left lung Heart normal sinus rhythm no murmurs rubs or clicks noted Abdomen soft nontender bowel sounds are normoactive Lower extremities no clubbing cyanosis, nor edema appreciated bilaterally Coagulation Studies Laboratory Tests Test 12/21/24 11:25 Prothrombin Time 11.1 SECONDS (9.0-12.0) INR International Normalized Ratio 1.1 INR Coagulation Comments Problem\Assessment\Plan This is a 69 years old female with history of breast cancer, followed by oncologist, history of left side large pleural effusion, treated with thoracocentesis June 2024, history of chronic pain syndrome on home opioids, anemia, leukopenia, hypoalbuminemia, cardiomegaly, presented today to the hospital with chief complaint shortness of breath and large left pleural effusion, patient had procedure done by interventional radiologistDr. Tristan left side of the chest was placed chest tube, and decision was made to admit patient for further evaluation and treatment including consultation by Cardiothoracic surgeon Dr. Medina. History of breast cancer, followed up by oncologist Dr. Perkins. On Arimidex Large left pleural effusion associated with trapped lung, Status post left side chest tube placement by interventional radiologist, on Pain control meds , p.o. IV analgesics 12/27/24 Dr. Medina is following 12/28/24 chest tube drainage is downtrending significantly today- per Dr Medina continue chest tube to suction. 12/29/[address] Medina chest tube to water seal in the a.m. has been Acute respiratory failure secondary to hypoxia 12/27/24 resolved History of thoracocentesis June 2024 on the left side of the chest Chronic pain syndrome on home opioids- on Pain control meds , p.o. IV analgesics Leukocytopenia- Likely secondary to oncological process Continue monitor daily labs Moderate protein calorie malnutrition Combination Man is following Cardiomegaly DVT gastropathy prophylaxis addressed Current condition is guarded we will continue to follow patient in PCU. Likely discharge on 01/01/[address] Medina. Date of Service: Dec 29, 2024 Billing Provider: LYNDON CORNELL DO Common Visit Codes: [id number] INP/OBS CARE(HIGH) LYNDON CORNELL DO Dec 29, 2024 19:11
[2024-12-29] MEDS: PCA WASTE DOCUMENTATION 1 MG ML MC SCH (19:59)
[2024-12-30] VITALS (10 sets, daily range): BP systolic 92–123; BP diastolic 46–69; PULSE 60–81; RESP 14–20; TEMP 97–98.7; O2SAT 93–99
[2024-12-30 06:43] LABS: MEAN PLATELET VOLUME 7.0 FL (7.4-10.4); RED CELL DISTRIBUTION WIDTH 16.8 % (11.5-14.5)
[2024-12-30 06:57] LABS: CREATININE 0.53 MG/DL (0.40-0.90); TOTAL CARBON DIOXIDE 30.0 MMOL/L (24-32); eCRCL 101 ML/MIN; eGFR > 90 ML/MIN
[2024-12-30 07:12] LABS: EOSINOPHILS % (MANUAL) 4.0 % (0-6); LYMPHOCYTES % (MANUAL) 10.0 % (21-51); MONOCYTES % (MANUAL) 10.0 % (2-12); NEUTROPHILS % (MANUAL) 76.0 % (42-75); PLATELET ESTIMATE NORMAL
--- NOTE | 2024-12-30 13:57 | PROGRESS NOTE ---
Progress Note ID Providers to CC ~ Progress Note Progress Note: doing well/trial of waterseal MEJIA MEDINA MD Dec 30, 2024 13:57
--- NOTE | 2024-12-30 16:09 | PROGRESS NOTE ---
Daily Progress Note Providers to CC ~ Antibiotic Timeout Antibiotic Ordered?: Yes Subjective The patient is feeling well- the chest tube was placed to water seal and per patient's conversation with Dr. Medina if the patient does well tomorrow will likely go home on Wednesday Objective Vital Signs Date Time Temp Pulse Resp B/P (MAP) Pulse Ox O2 Delivery O2 Flow Rate FiO2 12/30/24 15:00 12 12/30/24 11:00 97.3 73 123/69 (87) 96 Room Air 12/30/24 08:14 0 21 Result Diagram: 12/30/24 0614 12/30/24 0614 Gen. No acute distress alert and oriented 4 Lungs clear to ascultation bilaterally, no wheezes rales or rhonchi appreciated, diminished breath sounds on the left lung Heart normal sinus rhythm no murmurs rubs or clicks noted Abdomen soft nontender bowel sounds are normoactive Lower extremities no clubbing cyanosis, nor edema appreciated bilaterally Coagulation Studies Laboratory Tests Test 12/21/24 11:25 Prothrombin Time 11.1 SECONDS (9.0-12.0) INR International Normalized Ratio 1.1 INR Coagulation Comments Problem\Assessment\Plan This is a 69 years old female with history of breast cancer, followed by oncologist, history of left side large pleural effusion, treated with thoracocentesis June 2024, history of chronic pain syndrome on home opioids, anemia, leukopenia, hypoalbuminemia, cardiomegaly, presented today to the hospital with chief complaint shortness of breath and large left pleural effusion, patient had procedure done by interventional radiologistDr. Tristan left side of the chest was placed chest tube, and decision was made to admit patient for further evaluation and treatment including consultation by Cardiothoracic surgeon Dr. Medina. History of breast cancer, followed up by oncologist Dr. Perkins. On Arimidex Large left pleural effusion associated with trapped lung, Status post left side chest tube placement by interventional radiologist, on Pain control meds , p.o. IV analgesics 12/27/24 Dr. Medina is following 12/28/24 chest tube drainage is downtrending significantly today- per Dr Medina continue chest tube to suction. 12/29/[address] Medina chest tube to water seal in the a.m. 12/30/24 chest tube to water seal today. Acute respiratory failure secondary to hypoxia 12/27/24 resolved History of thoracocentesis June 2024 on the left side of the chest Chronic pain syndrome on home opioids- on Pain control meds , p.o. IV analgesics Leukocytopenia- Likely secondary to oncological process Continue monitor daily labs Moderate protein calorie malnutrition Political Reporter is following Cardiomegaly DVT gastropathy prophylaxis addressed Current condition is guarded we will continue to follow patient in PCU. Likely discharge on 01/01/[address] Medina. Date of Service: Dec 30, 2024 Billing Provider: LYNDON CORNELL DO Common Visit Codes: [id number] INP/OBS CARE(HIGH) LYNDON CORNELL DO Dec 30, 2024 16:09
[2024-12-31] VITALS (11 sets, daily range): BP systolic 101–115; BP diastolic 54–80; PULSE 61–75; RESP 14–18; TEMP 97.2–98.7; O2SAT 92–97
[2024-12-31 06:39] LABS: MEAN PLATELET VOLUME 7.0 FL (7.4-10.4); RED CELL DISTRIBUTION WIDTH 16.9 % (11.5-14.5)
[2024-12-31 06:49] LABS: CREATININE 0.56 MG/DL (0.40-0.90); TOTAL CARBON DIOXIDE 30.9 MMOL/L (24-32); eCRCL 96 ML/MIN; eGFR > 90 ML/MIN
[2024-12-31 07:41] LABS: BASOPHILS % (MANUAL) 1.0 % (0-1); EOSINOPHILS % (MANUAL) 2.0 % (0-6); LYMPHOCYTES % (MANUAL) 13.0 % (21-51); MONOCYTES % (MANUAL) 10.0 % (2-12); NEUTROPHILS % (MANUAL) 74.0 % (42-75); PLATELET ESTIMATE NORMAL
--- NOTE | 2024-12-31 07:47 | RADIOLOGY REPORT ---
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 Left chest tubes in the left mark thorax. Lungs: Multifocal airspace disease. No significant interval change. Pleura: Postsurgical changes in the left chest. Cardiomediastinal contours: Unremarkable Bones: Unremarkable IMPRESSION: No significant interval change.
[2024-12-31] MEDS ORDERED: oxyCODONE/APAP 5-325mg tablet PO PRN (10:25)
[2024-12-31] MEDS: PCA WASTE DOCUMENTATION 1 MG ML MC SCH (18:53)
--- NOTE | 2024-12-31 19:43 | PROGRESS NOTE ---
Daily Progress Note Providers to CC ~ Antibiotic Timeout Antibiotic Ordered?: No Subjective The patient is chest tube was placed to water seal- the patient denies any shortness of breath or dyspnea and is doing well Objective Vital Signs Date Time Temp Pulse Resp B/P (MAP) Pulse Ox O2 Delivery O2 Flow Rate FiO2 12/31/24 19:37 71 18 93 Room Air* 0 21 12/31/24 15:00 97.2 104/55 (71) Result Diagram: 12/31/24 0554 12/31/24 0554 Gen. No acute distress alert and oriented 4 Lungs clear to ascultation bilaterally, no wheezes rales or rhonchi appreciated, diminished breath sounds on the left lung Heart normal sinus rhythm no murmurs rubs or clicks noted Abdomen soft nontender bowel sounds are normoactive Lower extremities no clubbing cyanosis, nor edema appreciated bilaterally Coagulation Studies Laboratory Tests Test 12/21/24 11: Prothrombin Time 11.1 SECONDS (9.0-12.0) INR International Normalized Ratio 1.1 INR Coagulation Comments Problem\Assessment\Plan This is a 69 years old female with history of breast cancer, followed by oncologist, history of left side large pleural effusion, treated with thoracocentesis June 2024, history of chronic pain syndrome on home opioids, anemia, leukopenia, hypoalbuminemia, cardiomegaly, presented today to the hospital with chief complaint shortness of breath and large left pleural effusion, patient had procedure done by interventional radiologist, Dr. Tristan left side of the chest was placed chest tube, and decision was made to admit patient for further evaluation and treatment including consultation by Cardiothoracic surgeon Dr. Medina. History of breast cancer, followed up by oncologist Dr. Perkins. On Arimidex Large left pleural effusion associated with trapped lung, Status post left side chest tube placement by interventional radiologist, on Pain control meds , p.o. IV analgesics 12/27/24 Dr. Medina is following 12/28/24 chest tube drainage is downtrending significantly today- per Dr Medina continue chest tube to suction. 12/29/[address] Medina chest tube to water seal in the a.m. 12/30/24 chest tube to water seal today. 12/31/24 remains doing well. Likely discharge in two days as per Dr. Medina Acute respiratory failure secondary to hypoxia 12/27/24 resolved History of thoracocentesis June 2024 on the left side of the chest Chronic pain syndrome on home opioids- on Pain control meds , p.o. IV analgesics Leukocytopenia- Likely secondary to oncological process Continue monitor daily labs Moderate protein calorie malnutrition In [employer] is following Cardiomegaly DVT gastropathy prophylaxis addressed Current condition is guarded we will continue to follow patient in PCU. Likely discharge on 01/02/[address] Medina. Date of Service: Dec 31, 2024 Billing Provider: LYNDON CORNELL DO Common Visit Codes: [id number] INP/OBS CARE(HIGH) LYNDON CORNELL DO Dec 31, 2024 19:43
--- NOTE | 2024-12-31 20:08 | PROGRESS NOTE ---
Progress Note ID Providers to CC ~ Progress Note Progress Note: doing well/follow ct output MEJIA MEDINA MD Dec 31, 2024 20:07
[2025-01-01] VITALS (11 sets, daily range): BP systolic 101–130; BP diastolic 42–69; PULSE 70–80; RESP 12–28; TEMP 96.5–98.1; O2SAT 94–98
[2025-01-01 06:22] LABS: MEAN PLATELET VOLUME 7.0 FL (7.4-10.4); RED CELL DISTRIBUTION WIDTH 17.0 % (11.5-14.5)
[2025-01-01 06:29] LABS: CREATININE 0.57 MG/DL (0.40-0.90); TOTAL CARBON DIOXIDE 30.2 MMOL/L (24-32); eCRCL 94 ML/MIN; eGFR > 90 ML/MIN
[2025-01-01 07:19] LABS: EOSINOPHILS % (MANUAL) 3.0 % (0-6); LYMPHOCYTES % (MANUAL) 9.0 % (21-51); MONOCYTES % (MANUAL) 8.0 % (2-12); NEUTROPHILS % (MANUAL) 80.0 % (42-75)
[2025-01-01 07:20] LABS: PLATELET ESTIMATE NORMAL
--- NOTE | 2025-01-01 08:41 | RADIOLOGY REPORT ---
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 Left chest tubes in the left mark thorax. Lungs: Multifocal airspace disease. No significant interval change. Pleura: Postsurgical changes in the left chest. Cardiomediastinal contours: Unremarkable Bones: Unremarkable IMPRESSION: No significant interval change.
--- NOTE | 2025-01-01 16:17 | PROGRESS NOTE ---
Progress Note ID Providers to CC ~ Progress Note Progress Note: doing well/home in am MEJIA MEDINA MD Jan 01, 2025 16:17
--- NOTE | 2025-01-01 16:28 | PROGRESS NOTE ---
Daily Progress Note Providers to CC ~ Antibiotic Timeout Antibiotic Ordered?: Yes Subjective No complaints. Objective Vital Signs Date Time Temp Pulse Resp B/P (MAP) Pulse Ox O2 Delivery O2 Flow Rate FiO2 01/01/25 11:37 14 01/01/25 11:00 97.0 71 130/53 (78) 98 Room Air 01/01/25 10:01 0 21 Result Diagram: 01/01/25 0550 01/01/25 0550 Gen. awake alert oriented asymptomatic HEENT: Normocephalic, atraumatic, extraocular movements are intact, sclera anicteric, conjunctiva pinkish, moist oral mucosa, no rash or ulcers. NECK: Supple, no JVD, trachea midline. CHEST: Clear to auscultation, crackles at the left base, PleurX noted. HEART: Regular rate rhythm, no murmur gallop or rub. ABDOMEN: Soft, nontender, no organomegaly. EXTREMITIES: No cyanosis clubbing or edema. NEURO EXAM: Grossly nonfocal. MUSCULOSKELETAL : No joint swelling or deformities. SKIN: No rash or ulcers noted. Coagulation Studies Laboratory Tests Test 12/21/24 11:25 Prothrombin Time 11.1 SECONDS (9.0-12.0) INR International Normalized Ratio 1.1 INR Coagulation Comments Other Results Medications reviewed. Problem\Assessment\Plan This is a 69 years old female with history of breast cancer, followed by oncologist, history of left side large pleural effusion, treated with thoracocentesis June 2024, history of chronic pain syndrome on home opioids, anemia, leukopenia, hypoalbuminemia, cardiomegaly, presented today to the hospital with chief complaint shortness of breath and large left pleural effusion, patient had procedure done by interventional radiologistDr. Tristan left side of the chest was placed chest tube, and decision was made to admit patient for further evaluation and treatment including consultation by Cardiothoracic surgeon Dr. Medina. # History of breast cancer, followed up by oncologist Dr. Perkins. On Arimidex # Large left pleural effusion associated with trapped lung, History of thoracocentesis June 2024 on the left side of the chest .Status post left side chest tube placement by interventional radiologist, on Pain control meds , p.o. IV analgesics Had a Pleur X placed, Followed by Dr. Medina. # Acute respiratory failure secondary to hypoxia- Resolved # Chronic pain syndrome on home opioids- on Pain control meds , p.o. IV analgesics # Leukocytopenia- Likely secondary to oncological process Continue monitor daily labs # Moderate protein calorie malnutrition :Independent Consultant is following # Cardiomegaly # DVT prophylaxis SCD's Likely discharge on 01/02/[address] Medina. Date of Service: Jan 01, 2025 Billing Provider: DAVID COPOER MD Common Visit Codes: [id number] INP/OBS CARE(HIGH) DAVID COOPER MD Jan 01, 2025 16:28
[2025-01-02 02:00] VITALS: BP 95/49; PULSE 70; RESP 20; TEMP 97.5; O2SAT 97
[2025-01-02 06:00] VITALS: BP 118/47; PULSE 70; RESP 16; TEMP 96.9; O2SAT 97
[2025-01-02 07:00] VITALS: RESP 16; O2SAT 97
[2025-01-02] MEDS ORDERED: ALBU2.5V7 NEB (08:11)
[2025-01-02 11:00] VITALS: BP 113/58; PULSE 79; RESP 19; TEMP 98; O2SAT 100
--- NOTE | 2025-01-02 11:42 | RADIOLOGY REPORT ---
Indication: effusion Technique: DI CHEST,SINGLE [id number] Comparison: 01/01/2025 FINDINGS/IMPRESSION: Chest tube projects over the left mid / lower lung. Interval removal chest tube projecting over the left upper lung. There is a moderate size left pneumothorax along the left lung base which appears increased in size, approximately 30-40% of the left thoracic cavity volume. Left chest wall soft tissue emphysema. Cardiac silhouette midline. Bilateral patchy airspace opacities. Small left pleural effusion.
--- NOTE | 2025-01-02 14:34 | DISCHARGE SUMMARY ---
Discharge Summary Providers to CC ~ Discharge Summary Admission Diagnosis: mailgnant left pleural effusion with trapped lung Hospital Course DATE OF ADMISSION: DATE OF DISCHARGE: DAVID COOPER MD Jan 02, 2025 14:34
--- NOTE | 2025-01-02 18:15 | PROGRESS NOTE ---
Progress Note ID Providers to CC ~ Progress Note Progress Note: doing well/dc MEJIA MEDINA MD Jan 02, 2025 18:14
== END 2025-01-02 16:25 | disposition home health service (06) | DRG 163 ==
LOC: SSTAY O 10:40 → PCU 3S 16:34 → CICU 2S 12-23 10:14 → PCU 3S 12-26 12:09
PROVIDERS: ADMIT Radiology Diagnostic Radiology; ATTEND Radiology Diagnostic Radiology
PROC: 0W9B30Z Drainage of Left Pleural Cavity with Drainage Device, Percutaneous Approach (ICD-10-PCS; 2024-12-21)
PROC: 0BBP0ZZ Excision of Left Pleura, Open Approach (ICD-10-PCS; 2024-12-23)
PROC: 0W9B30Z Drainage of Left Pleural Cavity with Drainage Device, Percutaneous Approach (ICD-10-PCS; 2024-12-23)
PROC: 0BNG0ZZ Release Left Upper Lung Lobe, Open Approach (ICD-10-PCS; 2024-12-23)
PROC: 0BNJ0ZZ Release Left Lower Lung Lobe, Open Approach (ICD-10-PCS; principal; 2024-12-23 10:18)
PROC: BW241ZZ Computerized Tomography (CT Scan) of Chest and Abdomen using Low Osmolar Contrast (ICD-10-PCS; 2024-12-27)
DX: J98.4 Other disorders of lung (principal); J96.01 Acute respiratory failure with hypoxia; E44.0 Moderate protein-calorie malnutrition; J93.82 Other air leak; E88.09 Other disorders of plasma-protein metabolism, not elsewhere classified; D49.3 Neoplasm of unspecified behavior of breast; D72.819 Decreased white blood cell count, unspecified; J91.0 Malignant pleural effusion; J94.8 Other specified pleural conditions; G89.4 Chronic pain syndrome; Z79.899 Other long term (current) drug therapy; Z85.3 Personal history of malignant neoplasm of breast; Z68.27 Body mass index [BMI] 27.0-27.9, adult
CPT/HCPCS: 32557; 36415; 36600; 71045; 71250; 71260; 80048; 80053; 82803; 82948; 83036; 83735; 84100; 84132; 84145; 85007; 85018; 85025; 85610; 85651; 86885; 86900; 86901; 87070; 87081; 88300; 88305; 88307; 89051; 94002; 94003; 94668; 94760; 97110; 97116; 97162; 97530; A4421; A4565; A4615; A4618; A4649; A6212; A6213; A6222; A6223; A6250; A6253; A6258; A6402; A6446; A6449; A7000; A7048; C1729; C1758; C9250; G0378; J0666; J0690; J1171; J1650; J1815; J1885; J2250; J2270; J2704; J3010; J3490; J7030; J7040; J7120; J7121; P9045; Q9967

== ENCOUNTER 2025-01-09 11:36 | Outpatient (CLI) | payer MEDICARE, BC ==
[~2025-01-09 11:36] MED LIST changes: +ALBU2.5V7 NEB; +ANAS1TAB10 PO; -HYDR-3964 PO; +PALB125C PO; -TIRZ5PEN; -TRAZ-251 PO
--- NOTE | 2025-01-09 12:47 | RADIOLOGY REPORT ---
DI CHEST,TWO VIEWS CLINICAL HISTORY: S/P LUNG SURGERY F/U COMPARISON: DI CHEST,SINGLE VIEW on DOS: 01/02/25, DI CHEST,SINGLE VIEW on DOS: 01/01/25, DI CHEST,SINGLE VIEW on DOS: 12/31/24, DI CHEST,SINGLE VIEW on DOS: 12/29/24, DI CHEST,SINGLE VIEW on DOS: 12/28/24 TECHNIQUE: Frontal and lateral view of the chest was obtained FINDINGS: Lines and Tubes: None Lungs: Small left hydropneumothorax. Multifocal left lung consolidative opacities. Trace bilateral pleural effusions. Left chest wall emphysema. Cardiomediastinal contours:Obscured. Bones: No acute osseous abnormality. IMPRESSION: Small left hydropneumothorax. Multifocal left lung consolidative opacities. Trace bilateral pleural effusions. Left chest wall emphysema..
== END 2025-01-09 23:59 | disposition home or self-care (01) ==
LOC: RAD 11:36
PROVIDERS: ATTEND Surgery
DX: J43.8 Other emphysema (principal); J98.4 Other disorders of lung; J94.8 Other specified pleural conditions; Z94.2 Lung transplant status
CPT/HCPCS: 71046

== ENCOUNTER 2025-02-26 09:54 | Outpatient (CLI) | payer MEDICARE, BC ==
--- NOTE | 2025-02-26 14:49 | RADIOLOGY REPORT ---
CHEST RADIOGRAPH INDICATION: S/P LUNG SURGERY TECHNIQUE: Frontal and lateral view of the chest was obtained COMPARISON: DI CHEST,TWO VIEWS on DOS: 01/09/25, DI CHEST,SINGLE VIEW on DOS: 01/02/25, DI CHEST,SINGLE VIEW on DOS: 01/01/25, DI CHEST,SINGLE VIEW on DOS: 12/31/24, DI CHEST,SINGLE VIEW on DOS: 12/29/24 FINDINGS: Lines and Tubes: None Lungs: Opacification left lung base. Effacement left hemidiaphragm. No pneumothorax. No infiltrates in the right lung. Effacement left heart border and left hemidiaphragm. Pleura: Moderate left pleural effusion.. No pneumothorax. Cardiomediastinal contours: Unremarkable Bones: Unremarkable IMPRESSION: 1. Moderate left pleural effusion with associated atelectasis/consolidation.
== END 2025-02-26 23:59 | disposition home or self-care (01) ==
LOC: RAD 09:54
PROVIDERS: ATTEND Surgery
DX: J90 Pleural effusion, not elsewhere classified (principal)
CPT/HCPCS: 71046